=== PATIENT | female | born 1950 | race African-American/Black ===

== ENCOUNTER 2016-12-20 12:31 | Inpatient (IN) | payer MEDICARE, OTHER ==
--- NOTE | ~2016-12-20 | A ---
[facility] Nutrition Therapy DATE: 12/21/16 Patient: YOSI SOLIZ Physician: CARMEN Address: [address] [place] [address] Room/Bed: [address], Zip: [place] [address] Admit Date: 12/20/16 Date of : 48 Height: 5 6 Weight: 222 101 NUTRITIONAL ASSESSMENT: REASON: NPO in ICU, CVA 66 yo female admitted for questionable stroke PMH: HTN, HLD, TIA, CVA, CAD, Parkinsons, anemia, dementia, immobility, contractures, paralysis Anthropometrics: Ht: 65" Wt: 101 kg BMI: 37.1 Labs: Cl- 112 AST 43 Accuchecks 88 GFR 53.8 Meds: Furosemide, D5%, levophed, lipitor, MOM, lopressor I/O & Bowel function: 1862/1190, last BM unknown Skin Integrity: Healed wounds to right ankle and buttocks Edema: none noted Diet: NPO NH diet regimen: Mechanical soft foods with extra gravy and thin liquids/ no straws/ assist with eating/ 90 degrees when eating/ uses sippy cup Assessment: Chart reviewed, events noted. Stroke protocol initiated, and the pt was given TPA. Pt is NPO until FACILITY PRACTICE SPECIALIST evaluation. Pt's diet at the assisted is noted above. Pt was ordered a slick diet during a previous admission here in September 2016. Pt is not appropriate for diet education at this time due to confusion. Pt has h/o dementia. Please see recommendations below. Dx: Inadequate protein-energy intake RT CVA Dx, TPA treatment AEB FACILITY PRACTICE SPECIALIST evaluation ordered, NPO status. Intervention: 1. FACILITY PRACTICE SPECIALIST 2. Advance diet per FACILITY PRACTICE SPECIALIST recs Monitoring, Evaluation and Goals: 1. Oral intake; advance diet per FACILITY PRACTICE SPECIALIST recommendations, tolerate >50% of meals 2. Labs; WNL 3. Weight; preserve lean body mass [facility] Nutrition Therapy DATE: 12/21/16 Patient: YOSI SOLIZ Physician: CARMEN Address: [address] [place] [address] Room/Bed: [address], Zip: [place] [address] Admit Date: 12/20/16 Date of : 48 Height: 5 6 Weight: 222 101 4. Skin; prevent breakdown Recommendations: 1. FACILITY PRACTICE SPECIALIST evaluation to determine if the pt can safely tolerate PO intake. 2. Advance diet per FACILITY PRACTICE SPECIALIST recommendations + heart healthy diet restriction. Please see above for the pt's NH diet regimen, as the pt requires feeding assistance and other precautions noted above. 3. Once diet advances, RD will order appropriate supplements as needed. 4. If the pt is unable to tolerate PO intake safely, may consider enteral nutrition. RD will follow up. Pt is at moderate nutritional risk. Respectfully, CARMELO OROZCO RD, LD Food and Nutritional Services [facility] cc: client file
--- NOTE | ~2016-12-20 | CT18 ---
[facility] A Service of [facility] RADIOLOGY TEXT RESULTS PATIENT: YOSI SOLIZ LOCATION: [facility] [id number] : 48 UNIT #: [id number] AGE: [address]: Alma Michael MD SEX: F ORDER DR: [id number] [facility] [address] [facility]. [place], [place] [address] [id number] MR#: [id number] Acc #: [id number] NAME: YOSI SOLIZ : 1950 SEX: F STUDY DATE/TIME: 12/20/2016 11:49 UNIT: [facility] ROOM: STUDY DESCRIPTION: CT Angio Head Stroke Attending Physician: Mark Curiel D.O. Ordering Physician: Mark Curiel D.O. Primary Care Physician: Primary Care Physician No MEDICAL IMAGING REPORT This report is preliminary unless electronic signature is present EXAM CT scan of the head and neck with contrast with carotid CT angiography HISTORY Onset of aphasia at 10 o'clock this morning. TECHNIQUE Axial imaging was obtained from the mid mediastinum to the top of head with contrast. 100 mL of Isovue was used. CT angiography was performed with thick sliding MIPs, curved planar reformats and 3-D volumetric imaging with surface shaded and volume shaded display. This CT exam was performed with one or more of the following radiation dose reduction techniques: automatic exposure control, adjustment of mA and/or kV according to patient size, and iterative reconstruction. FINDINGS Extravascular structures are unremarkable. The CT angiographic study is negative. There is no evidence of atherosclerotic disease, dissection or major branch vessel occlusion. There is no evidence of aneurysm or vascular malformation intracranially. As a normal variant the right A1 segment is hypoplastic or absent. The distal vertebrals are codominant. IMPRESSION 1. Negative CT angiogram. 2. Also noted but not mentioned above is dilation of the esophagus. This suggests achalasia. Consider correlation with endoscopy or esophagram for confirmation. Dictated by... Milan Walker M.D. [facility] A Service of [facility] RADIOLOGY TEXT RESULTS PATIENT: YOSI SOLIZ LOCATION: [facility] [address]-14 : 48 UNIT #: [id number] AGE: [address]: Alma Michael MD SEX: F ORDER DR: THIS IS AN ELECTRONICALLY VERIFIED REPORT Milan Walker M.D. at 12/20/2016 4:28 PM [place] TD: 12/20/2016 14:12 JOB #: [id number] MEDICAL IMAGING REPORT Page 1 of 1 COPY
--- NOTE | ~2016-12-20 | CT71 ---
[facility] A Service of [facility] RADIOLOGY TEXT RESULTS PATIENT: YOSI SOLIZ LOCATION: [facility] 310-01 : 48 UNIT #: [id number] AGE: [address]: Tyrell Wilhelm MD SEX: F ORDER DR: [id number] [facility]. [place], [place] [address] [id number] I MR#: [id number] Acc #: [id number] NAME: YOSI SOLIZ : 1950 SEX: F STUDY DATE/TIME: 12/21/2016 13:50 UNIT: [facility] ROOM: [facility] STUDY DESCRIPTION: CT Head Wo Contrast Attending Physician: Tyrell Wilhelm M.D. Ordering Physician: Holley Almonte M.D. Primary Care Physician: Primary Care Physician No MEDICAL IMAGING REPORT This report is preliminary unless electronic signature is present EXAM Head CT without HISTORY Followup stroke. CVA 24 hours post stroke. History of dementia, coronary artery disease. Some improvement in alertness per RN. History of Parkinson's, right-sided paralysis. TECHNIQUE This CT exam was performed with one or more of the following radiation dose reduction techniques: automatic exposure control, adjustment of mA and/or kV according to patient size, and iterative reconstruction. COMMENT Routine noncontrast head CT is reviewed. There is an earlier study from 12/20/2016. The mastoid air cells are clear. The patient has mild mucosal thickening in the ethmoid air cells and inferior frontal sinuses but there is no sinus air-fluid level. There is some streak artifact from a lead on the patient's forehead. Allowing for this there is no evidence for acute intracranial hemorrhage or extraaxial fluid collection. The ventricles are normal in size and configuration. Fatima-white junction is fairly well maintained. No acute cortical infarct is appreciated. Minor white matter low-attenuation likely due to small vessel disease noted. There is no intracranial mass effect. Basilar cisterns patent. IMPRESSION No acute intracranial abnormality is appreciated. Again there is minor probable sequelae of small vessel disease. [facility] A Service of [facility] RADIOLOGY TEXT RESULTS PATIENT: YOSI SOLIZ LOCATION: [facility] 310-01 : 48 UNIT #: [id number] AGE: [address]: Tyrell Wilhelm MD SEX: F ORDER DR: Dictated by... Becca Rios M.D. THIS IS AN ELECTRONICALLY VERIFIED REPORT Becca Rios M.D. at 12/21/2016 6:33 PM [place] TD: 12/21/2016 14:55 JOB #: [id number] MEDICAL IMAGING REPORT Page 1 of 1 COPY
--- NOTE | ~2016-12-20 | DS ---
Unit #: [id number] #: [id number] Patient: YOSI SOLZI [id number] [address] [address] [id number] I MR#: [id number] NAME: YOSI SOLIZ ROOM: 310 Age: 66 Sex: F Admission Date: 12/20/2016 : 1950 Discharge Date: 12/22/2016 Attending Physician: Tyrell Wilhelm M.D. Primary Care Physician: No Primary Care Physician DISCHARGE SUMMARY REASON FOR ADMISSION Possible stroke. HISTORY OF PRESENT ILLNESS/HOSPITAL COURSE The patient is a 66-year-old female with an underlying history of CVA, TIA, hypertension, hyperlipidemia, likely mild to moderate dementia, Parkinsonism, depression, chronic immobility syndrome, who was [facility] emergency [facility] from the [facility] for evaluation of above. Please see H and P for complete details. Code Stroke was called. CT of the head was performed which did not show any acute process. Neurology service was subsequently consulted. After calling the patient's fci and feeling as though the patient had new onset aphasia earlier in the day and she was within the window, she received tPA. She was placed on appropriate tPA protocol. Some of her deficits did show improvement. Consultation was placed to speech therapy to evaluate her swallowing mechanism. She was treated with appropriate modifications. After the tPA had been given, the patient's blood pressure dropped to systolic in the 50s. She was quite lethargic. Her blood pressure was low and, therefore, she was started on dopamine, switched to Levophed and (1) for possible underlying septic shock was made. Routine laboratory studies were obtained. Consultation was placed to cardiology as well as intensive care services. The patient was placed in the ICU. Blood cultures have not yielded any acute bacterial growth and blood pressure has now remained stable. She has been weaned off of pressor support. Her urine culture ultimately did grow E. coli. Cardiology services did perform a 2D echocardiogram showing ejection fraction 65%. Recommendation was made from their standpoint for Eliquis 2.5 mg p.o. b.i.d. In consideration of her past history of atrial fibrillation, likely paroxysmal, she did convert spontaneously to sinus rhythm while here. At this point in time, her overall condition is guarded/poor at best and she seems to have persistent toxic/metabolic encephalopathy, likely Unit #: [id number] #: [id number] Patient: YOSI SOLIZ multifactorial in origin. She does appear to be close to baseline. She is a long-term resident of a fci and at this point in time she is stable to be discharged back for ongoing care including increasing rehab and/or therapy. FINAL DISCHARGE DIAGNOSES 1. Acute cerebrovascular accident, status post tPA with improvement. 2. Post tPA hypotension. 3. Septic shock. 4. Urinary tract infection. 5. Aphasia. 6. Hypertension. 7. Dysphagia with appropriate dietary modifications. 8. Dementia, likely mild to moderate. 9. Paroxysmal atrial fibrillation, now normal sinus. 10. Hyperlipidemia. 11. Parkinsonism. DISCHARGE MEDICATIONS 1. DuoNeb aerosol solution q.6 hours scheduled. 2. Tylenol 500 mg p.o. b.i.d. p.r.n. 3. Eliquis 2.5 mg p.o. b.i.d. 4. Nystatin powder as directed. 5. Amantadine 100 mg p.o. b.i.d. 6. Betapace 40 mg p.o. b.i.d. 7. Milk of Mag as directed. 8. Aricept 10 mg p.o. daily. 9. Lasix 20 mg p.o. daily. 10. Lipitor 5 mg p.o. q. h.s. 11. Sinemet CR 25/100, two tablets p.o. b.i.d. 12. Aspirin 81 mg daily. 13. Multivitamin daily. 14. Levaquin 500 mg p.o. daily x7 days. DISCHARGE CONDITION Stable. DISCHARGE DISPOSITION Back to fci. PRISON PROGNOSIS Guarded/poor. Dictated by... Max Soria/meme TD: 12/22/2016 12:15 JOB #: [id number] Unit #: [id number] #: [id number] Patient: YOSI SOLIZ DISCHARGE SUMMARY Page 1 of 1 X Tyrell Wilhelm MD X DISCHARGE SUMMARY
--- NOTE | ~2016-12-20 | CO ---
Unit #: [id number] #: [id number] Patient: YOSI FARMER [id number] [address] [address] [id number] I MR#: [id number] NAME: YOSI FARMER ROOM: [facility] Age: 66 Sex: F Admission Date: 12/20/2016 : 1950 Attending Physician: Alma Michael M.D. Primary Care Physician: Nieves Primary Care Physician Consultation Date: 12/20/2016 CONSULTATION REPORT REASON FOR CONSULT ICU management. CHIEF COMPLAINT Questionable stroke. HISTORY OF PRESENT ILLNESS This is a 66-year-old -[place] female with a past medical history significant for cerebrovascular accident, TIA, hypertension, hyperlipidemia, Parkinson disease, depression and immobility who presented to the emergency room via EMS as a Code Stroke. Per report, the patient is a custodial resident but she is awake, alert, oriented x3. At her baseline, she was ready to play Bingo when she was noted to have a facial droop and unable to speak around 10 a.m. today. Upon presentation to the ER, her NIH score was 7 and she was deemed a candidate for tPA per Dr. Almonte. Soon after tPA was given, patient's blood pressure dropped to 50 and I was called emergently to evaluate the patient. Upon my presentation, the patient was very lethargic and barely responsive. Her blood pressure systolically was in the 40s to 50s. I immediately started patient on dopamine and then switched to Levophed through peripheral IV access. I was unable to place a central line due to tPA administration. PAST MEDICAL HISTORY 1. Dementia. 2. Parkinson. 3. CVA/TIA. 4. Hypertension. 5. Hyperlipidemia. 6. Depression. 7. Immobility. ALLERGIES No known drug allergies. HOME MEDICATIONS 1. Lasix. 2. Aspirin. 3. Lisinopril. 4. Carbidopa and levodopa. 5. Tylenol. 6. Amantadine. 7. Milk of magnesia. Unit #: [id number] #: [id number] Patient: YOSI FARMER SOCIAL HISTORY The patient is a custodial resident. She is a former smoker. She spends most of her time in wheelchair. Her brother is Jayden Farmer who is her power of full stack engineer. Her code status is Full at this point. REVIEW OF SYSTEMS Unable to obtain from the patient due to her condition. PHYSICAL EXAMINATION VITALS: Blood pressure 58/23, respiratory rate 16, O2 saturation 98% on nasal cannula. HEENT: Atraumatic, normocephalic. NECK: Supple. No JVD, no lymphadenopathy. CHEST: Decreased breath sounds bilaterally. HEART: S1, S2. No murmurs, gallops or rubs. ABDOMEN: Soft, nontender. Bowel sounds positive. No hepatosplenomegaly. EXTREMITIES: +1 edema in the lower extremities. SKIN: No rashes. PRIMER CHARGING TOOL SETTER: The patient is lethargic but she opens her eyes to verbal stimuli. She is showing me thumbs up but very weak in both upper extremities. She is wiggling her toes but, again, she is very weak overall. DIAGNOSTIC STUDIES LABORATORY: Creatinine 1.3, sodium 141, white blood count 7.0, hemoglobin 12.8, platelets 218. IMAGING: CT head didn't show acute abnormality. ASSESSMENT 1. Septic shock. 2. Rule out acute ischemic stroke. 3. Urinary tract infection. 4. Dementia. 5. Hyperlipidemia. 6. Parkinson disease. 7. Depression. 8. Immobility. 9. Coronary artery disease. 10. Atrial fibrillation. PLAN 1. The patient is critical and ill-appearing at this point. Will continue Levophed through peripheral IV access because, unfortunately, unable to place PICC line or central line after she received tPA. 2. IV fluids per sepsis guidelines. 3. Rocephin for UTI. 4. Status post tPA, per neurology. 5. Will keep NPO for the next 24 hours. 6. PT eval when deemed appropriate per neurology. 7. SCDs. Critical care time spent on this patient was 35 minutes. Unit #: [id number] #: [id number] Patient: YOSI FARMER Dictated by... Max Valenzuela TD: 12/21/2016 07:31 JOB #: [id number] CONSULTATION REPORT Page 1 of 1 X CLEO DE LA TORRE MD CONSULTATION REPORT
--- NOTE | ~2016-12-20 | EKG ---
PATIENT: YOSI SOLIZ UNIT #: [id number] Ventricular Rate: 83 BPM Atrial Rate: 83 BPM P-R Interval: 202 ms QRS Duration: 104 ms Q-T Interval: 378 ms QTC Calculation(Bezet): 444 ms P [place]: 47 degrees Calculated R [place]: -37 degrees Calculated T [place]: 30 degrees Diagnosis Line: Sinus rhythm with sinus arrhythmia with occasional Diagnosis Line: Premature ventricular complexes Diagnosis Line: Left axis deviation Diagnosis Line: septal ischemia Diagnosis Line: Abnormal ECG Diagnosis Line: When compared with ECG of 20-DEC-2016 12:55, Diagnosis Line: (unconfirmed) Diagnosis Line: Sinus rhythm has replaced Atrial fibrillation Diagnosis Line: ST no longer depressed in Anterior leads Diagnosis Line: Nonspecific T wave abnormality has replaced Diagnosis Line: inverted T waves in Inferior leads Diagnosis Line: Nonspecific T wave abnormality no longer evident Diagnosis Line: in Lateral leads Diagnosis Line: Confirmed by ELLE RICE MD ([id number]) on 12/21/2016 Diagnosis Line: 8:01:38 PM INTERPRETING MD: KRYSTAL VÁZQUEZ
--- NOTE | ~2016-12-20 | CR72 ---
[facility] A Service of [facility] RADIOLOGY TEXT RESULTS PATIENT: YOSI SOLIZ LOCATION: [facility]11-24 : [birth year] UNIT #: [id number] AGE: [address]: Alma Michael MD SEX: F ORDER DR: [id number] [place], [place] [address] [id number] I MR#: [id number] Acc #: [id number] NAME: YOSI SOLIZ : 1950 SEX: F STUDY DATE/TIME: 12/20/2016 12:46 UNIT: [facility] ROOM: 06573 STUDY DESCRIPTION: CR Chest Single View Portable Attending Physician: Alma Michael M.D. Ordering Physician: Mark Curiel D.O. Primary Care Physician: No Primary Care Physician MEDICAL IMAGING REPORT This report is preliminary unless electronic signature is present EXAM AP portable chest. Date 12/20/2016 at 1246. HISTORY Attempted central line placement, unsuccessful. Evaluate for potential pneumothorax. History of stroke, Parkinson disease, right-sided body paralysis. COMPARISON PA and lateral chest radiograph, 09/28/2016. FINDINGS No acute airspace disease. Stable heart size, upper limits normal. Patient is slightly rotated toward the left. Calcified granuloma in the right base, unchanged. No pleural effusion or pneumothorax. IMPRESSION No acute chest findings. Dictated by... Arcelia Fontenot M.D. THIS IS AN ELECTRONICALLY VERIFIED REPORT Arcelia Fontenot M.D. at 12/21/2016 7:04 AM [facility]/blas TD: 12/20/2016 14:29 JOB #: [id number] [facility] A Service [facility] RADIOLOGY TEXT RESULTS PATIENT: YOSI SOLIZ LOCATION: [facility]- : [birth year] UNIT #: [id number] AGE: [address]: Alma Michael MD SEX: F ORDER DR: MEDICAL IMAGING REPORT Page 1 of 1 COPY
--- NOTE | ~2016-12-20 | EKG ---
PATIENT: YOSI SOLIZ UNIT #: [id number] Ventricular Rate: 74 BPM Atrial Rate: 74 BPM P-R Interval: 194 ms QRS Duration: 102 ms Q-T Interval: 390 ms QTC Calculation(Bezet): 432 ms P [place]: 61 degrees Calculated R [place]: -11 degrees Calculated T [place]: 12 degrees Diagnosis Line: Normal sinus rhythm Diagnosis Line: Normal ECG Diagnosis Line: When compared with ECG of 20-DEC-2016 15:28, Diagnosis Line: (unconfirmed) Diagnosis Line: Premature ventricular complexes are no longer Diagnosis Line: Present Diagnosis Line: Confirmed by ELLE RICE MD ([id number]) on 12/22/2016 Diagnosis Line: 6:14:13 AM INTERPRETING MD: KRYSTAL VÁZQUEZ
--- NOTE | ~2016-12-20 | CT24 ---
[facility] A Service of [facility] RADIOLOGY TEXT RESULTS PATIENT: YOSI SOLIZ [facility] [address] : [birth year] UNIT #: [id number] AGE: [address]: Alma Michael MD SEX: F ORDER DR: [id number] [facility] [address] [facility]. [place], [place] [address] [id number] E MR#: [id number] Acc #: [id number] NAME: YOSI SOLIZ : 1950 SEX: F STUDY DATE/TIME: 12/20/2016 11:49 UNIT: [facility] ROOM: STUDY DESCRIPTION: CT Angio Neck Stroke Attending Physician: Mark Curiel D.O. Ordering Physician: Mark Curiel D.O. Primary Care Physician: Primary Care Physician No MEDICAL IMAGING REPORT This report is preliminary unless electronic signature is present EXAM CT angiogram of the neck HISTORY FINDINGS Please see CT angiogram of the head for results. Dictated by... Milan Walker M.D. THIS IS AN ELECTRONICALLY VERIFIED REPORT Milan Walker M.D. at 12/20/2016 4:28 PM Mary[place] TD: 12/20/2016 14:15 JOB #: [id number] MEDICAL IMAGING REPORT Page 1 of 1 COPY
--- NOTE | ~2016-12-20 | CO ---
Unit #: [id number] #: [id number] Patient: YOSI SOLIZ [id number] [address] [address] [id number] I MR#: [id number] NAME: YOSI SOLIZ ROOM: CIC3 Age: 66 Sex: F Admission Date: 12/20/2016 : 1950 Attending Physician: Tyrell Wilhelm M.D. Primary Care Physician: No Primary Care Physician CONSULTATION REPORT REASON FOR CONSULTATION Atrial fibrillation. HISTORY OF PRESENT ILLNESS This is a 66-year-old -Tongan female who was brought into the emergency room with stroke-like symptoms. There was a sudden onset aphasia with right-sided weakness. She was treated with TPA in the emergency room. She was normotensive on arrival where a blood pressure was 112/64 mmHg. However, her blood pressure dropped to as low as 40 mmHg. She was treated with IV fluids and started on Levophed drip. Presenting EKG found the patient to be in atrial fibrillation and a controlled ventricular rate. The duration is unknown. The patient is currently awake and alert and is able to understand commands. Her speech is somewhat difficult to understand. She was admitted to this facility in September of 2016 for urinary tract infection. EKG during that admission showed the patient to be in normal sinus rhythm. From a cardiac standpoint, the [facility] records reveal history of coronary artery disease; however, details are unknown. She currently denies any symptoms of angina. PAST MEDICAL HISTORY 1. Hypertension. 2. Hyperlipidemia. 3. Coronary artery disease. Details unknown. 4. TIA. 5. Depression. 6. Parkinson disease. 7. Anemia. 8. Depression. 9. alf resident. 10. Immobility syndrome. PAST SURGICAL HISTORY D and C. SOCIAL HISTORY The patient resides in a [facility]. According to previous records, she is in a wheelchair. The patient has a remote history of nicotine abuse. FAMILY HISTORY Unobtainable. ALLERGIES No known drug allergies. Unit #: [id number] #: [id number] Patient: YOSI SOLIZ [facility] MEDICATIONS 1. Lisinopril 10 mg daily. 2. Aspirin 81 mg daily. 3. Multivitamin one tablet daily. 4. Loratadine 10 mg daily. 5. Furosemide 20 mg daily. 6. Amantadine 100 mg b.i.d. 7. Carbidopa/levodopa 25/100 mg two tablets b.i.d. 8. Aricept 10 mg daily. 9. Lipitor 10 mg half a tablet daily. 10. Albuterol mini nebs q.4 hours p.r.n. 11. Nystatin applied topically b.i.d. as needed. 12. Milk of Magnesia 30 mL daily p.r.n. 13. Acetaminophen 500 mg b.i.d. and p.r.n. REVIEW OF SYSTEMS Unable to adequately obtain but the patient denies dyspnea and chest pain. PHYSICAL EXAMINATION GENERAL APPEARANCE: This is a 66-year-old obese, -Tongan female who is in no acute distress. VITAL SIGNS: Blood pressure 160/80. Heart rate 90. Temperature 98.4. BMI 41. NEUROLOGIC: She is awake, alert and oriented. She understands commands and squeezes and post doc fellowship bilaterally. She is able to make a fist in the right hand, wiggles toes on command. NECK: Trachea is midline. No thyromegaly or lymphadenopathy. No jugular venous distention. HEART: S1, S2. Heart sounds are normal. No murmurs, rubs or clicks. Irregularly irregular rhythm. LUNGS: Clear to exam without rales, rhonchi, wheezing. ABDOMEN: Soft, nontender with bowel sounds present. No masses appreciated. EXTREMITIES: Left lower extremity with 1+ edema. Right normal. DIAGNOSTIC STUDIES LABORATORY: Glucose 67, BUN 19, creatinine 1.3, sodium 141, potassium 3.9. CK total 493. Lactic acid 1.6. White count 7.0, hemoglobin 12.8, hematocrit 39.8, platelet count 218. IMAGING: Chest x-ray shows no active disease. CT angio of the head and neck shows no acute findings. CT of the head shows no acute intracranial abnormality. IMPRESSION 1. Questionable cardioembolic cerebrovascular accident. 2. Atrial fibrillation and controlled ventricular rate of age undetermined. 3. History of Parkinson dementia. 4. Hypertension. 5. Hyperlipidemia. 6. Coronary artery disease. Details unknown. 7. Immobility syndrome. PLAN 1. Cardiology was consulted for atrial fibrillation. The patient's rate is currently controlled. We will use beta lorenzo for control of Unit #: [id number] #: [id number] Patient: HEYDIYOSI heart rate when blood pressure is stable. 2. Wean Levophed as blood pressure tolerates. 3. Start anticoagulation when allowed after IV TPA therapy. 4. We will check a 2D echocardiogram to evaluate left atrial size and left ventricle dysfunction. 5. We will follow the patient with you. Thank you for allowing us to assist with this patient's care. Dictated by... Juan Balbuena A.P.R.N. for Max Wesley/refugio TD: 12/21/2016 09:32 JOB #: [id number] CONSULTATION REPORT Page 1 of 1 X Juan Balbuena APRN X CONSULTATION REPORT
--- NOTE | ~2016-12-20 | EKG ---
PATIENT: YOSI SOLIZ UNIT #: [id number] Ventricular Rate: 97 BPM Atrial Rate: 105 BPM QRS Duration: 88 ms Q-T Interval: 366 ms QTC Calculation(Bezet): 464 ms Calculated R Hilliard: -16 degrees Calculated T Hilliard: -15 degrees Diagnosis Line: Atrial fibrillation Diagnosis Line: Nonspecific ST abnormality Diagnosis Line: Abnormal ECG Diagnosis Line: When compared with ECG of 27-SEP-2016 11:27, Diagnosis Line: Atrial fibrillation has replaced Sinus rhythm Diagnosis Line: Vent. rate has increased BY 38 BPM Diagnosis Line: QT has lengthened Diagnosis Line: Confirmed by ELLE RICE MD ([id number]) on 12/21/2016 Diagnosis Line: 7:57:36 PM INTERPRETING MD: KRYSTAL VÁZQUEZ
--- NOTE | ~2016-12-20 | HP ---
Unit #: [id number] #: [id number] Patient: YOSI FARMER [id number] [address] [address] [id number] E MR#: [id number] NAME: YOSI FARMER ROOM: Age: 66 Sex: F Admission Date: 12/20/2016 : 1950 Attending Physician: Mark Curiel D.O. HISTORY AND PHYSICAL CHIEF COMPLAINT Possible stroke. HISTORY OF PRESENT ILLNESS The patient is a 66-year-old female with a past medical history of cerebrovascular accident, TIA, hypertension, hyperlipidemia, dementia, Parkinson disease, depression, and immobility, who [facility] the [facility] for evaluation of the above. History is obtained from chart review and discussion with ER staff due to the patient's altered mental status and aphasia. Apparently, the patient was in her usual state of health getting ready to play Bingo when she was noted to have facial droop and be unable to speak around 10 a.m. She was brought to the emergency department for evaluation. A Code Stroke was called. A CT of the head was done and showed nothing acute. She was given TPA. She is being admitted to [facility] for evaluation and further treatment. PAST MEDICAL HISTORY 1. Admission to [facility] September 27-2016, for altered mental status secondary to E. coli urinary tract infection and sepsis. She was discharged to the prison on Omnicef. 2. Dementia. 3. Parkinson disease. 4. History of CVA/TIA. 5. Hypertension. 6. Hyperlipidemia. 7. Depression. 8. Immobility. ALLERGIES No known allergies. HOME MEDICATIONS 1. Lasix. 2. Aspirin. 3. Lisinopril. 4. Carbidopa and levodopa. 5. Tylenol. 6. Amantadine. 7. Milk of Magnesia. Home medications will need to be reviewed and verified. Unit #: [id number] #: [id number] Patient: YOSI FARMER SOCIAL HISTORY The patient lives in a prison. She is a former smoker. She spends most of her time in a wheelchair. Her brother, Jayden Farmer, is her power of senior trial attorney. We have not been able to reach him at the time of this dictation. Her code status is a Full Code. REVIEW OF SYSTEMS A complete review of systems is unobtainable due to altered mental status. PHYSICAL EXAMINATION VITAL SIGNS: Temperature is not recorded, pulse 76, respirations 16, and blood pressure 112/64. During the course of this dictation, the patient's blood pressure has dropped to 86 systolic. GENERAL: Patient is an female who is awake with eyes open. HEENT: Pupils are pinpoint. Mucous membranes are dry. NECK: Supple. Trachea is midline. CARDIOVASCULAR: Irregular. LUNGS: Relatively clear to auscultation bilaterally with no increased work of breathing. ABDOMEN: Soft and nontender with bowel sounds present in all four quadrants. EXTREMITIES: Nontender with no pedal edema. NEUROLOGIC: Patient is awake with eyes open. She is aphasic. Gravity Prospecting Supervisor strength is symmetric. PSYCHIATRIC: Unable to assess. SKIN: Skin of examined areas is warm and dry. DIAGNOSTIC STUDIES LABORATORY: Complete blood count notable for MCV of 100.3. INR is 1. Basic metabolic panel notable for a glucose of 67 and BUN and creatinine 19 and 1.3, respectively. Urinalysis is notable for 2+ leukocyte esterase, positive nitrite, 10-25 white blood cells, 4+ bacteria, and a few squamous cells. IMAGING: CT of the head shows nothing acute. CT angiogram of the head and neck shows nothing acute. CARDIOLOGY: EKG shows atrial fibrillation with a rate of 97 beats per minute. ASSESSMENT The patient is a 66-year-old female with: 1. Cerebrovascular accident. The patient is receiving tissue plasminogen activator. 2. Urinary tract infection. Review of [facility] records reveals a urine culture from September 27, 2016, that grew greater than 100,000 E. coli that was pansensitive. 3. Hypertension, although the patient's blood pressure has been running low in the emergency department. She is currently receiving a one liter normal saline bolus. 4. Hyperlipidemia. 5. Dementia. 6. Parkinson disease. 7. History of cerebrovascular accident/transient ischemic attack. 8. Depression. 9. Immobility. Unit #: [id number] #: [id number] Patient: YOSI FARMER 10. Coronary artery disease. 11. Atrial fibrillation. Review of [facility] records does not show a history of atrial fibrillation, so this is possibly new. PLAN 1. Admit to ICU. 2. N.p.o. 3. Normal saline at 125 mL/hour. 4. Dopamine drip for MAP greater than 65. 5. Consult Dr. Almonte regarding cerebrovascular accident. Stroke protocol per Neurology. 6. TPA protocol per Neurology. 7. Blood cultures x2. 8. Urine culture and sensitivity on urine in the lab. 9. Rocephin 1 gram IV daily pending results of urine culture. 10. Sepsis protocol with stat lactic acid and repeat lactic acid. 11. A 2D echo. 12. TSH. 13. Serial cardiac enzymes. 14. Consult Dr. Mccullough regarding new atrial fibrillation. 15. Consult Dr. Erika Drake regarding ICU admission. 16. Repeat labs in the morning. 17. Additional workup and consultants based on above. Forty-seven (47) minutes critical care time spent in the care of this patient (1 p.m. to 1:47 p.m.). Dictated by Max Garcia/donna TD: 12/20/2016 14:10 JOB #: [id number] HISTORY AND PHYSICAL Page 1 of 1 X Alma Michael MD X HISTORY AND PHYSICAL
--- NOTE | ~2016-12-20 | CT72 ---
[facility] A Service of [facility] RADIOLOGY TEXT RESULTS PATIENT: YOSI SOLIZ LOCATION: CIC3 CICCU3-17 : [birth year] UNIT #: [id number] AGE: [address]: Tyrell Wilhelm MD SEX: F ORDER DR: [id number] [facility] [address] [facility]. [place], [place] [address] [id number] E MR#: [id number] Acc #: [id number] NAME: YOSI SOLIZ : 1950 SEX: F STUDY DATE/TIME: 12/20/2016 11:34 UNIT: QUETA ROOM: STUDY DESCRIPTION: CT Head Wo Contrast Stroke Attending Physician: Mark Curiel D.O. Ordering Physician: Mark Curiel D.O. Primary Care Physician: No Primary Care Physician MEDICAL IMAGING REPORT This report is preliminary unless electronic signature is present EXAM CT head without IV contrast. COMPARISON September 27, 2016; August 14, 2016; and February 01, 2016; as well as MRI brain dated July 14, 2009. INDICATIONS 66-year-old female with aphasia since 10:00 a.m. today. TECHNIQUE This CT exam was performed with one or more of the following radiation dose reduction techniques: automatic exposure control, adjustment of mA and/or kV according to patient size, and iterative reconstruction. FINDINGS Mastoid air cells, middle ears and visualized paranasal sinuses are well-aerated. No acute fractures or suspicious osseous lesions. There is stable mild cerebral and cerebellar volume loss. No mass effect. No abnormal extraaxial fluid collection. No acute intracranial hemorrhage. Stable tiny area of hypoattenuation in the right frontal white matter as compared to September 27, 2016, most in keeping with mild chronic small vessel ischemic change. No convincing evidence of acute ischemia. IMPRESSION 1. No acute intracranial abnormality. Minimal stable chronic small vessel ischemic change is favored. 2. Mild diffuse cerebral and cerebellar volume loss. 1. Dictated by... Justin Stoner M.D. [facility] A Service [facility] RADIOLOGY TEXT RESULTS PATIENT: YOSI SOLIZ LOCATION: [facility] CICCU3-17 : [birth year] UNIT #: [id number] AGE: [address]: Tyrell Wilhelm MD SEX: F ORDER DR: THIS IS AN ELECTRONICALLY VERIFIED REPORT Justin Stoner M.D. at 12/21/2016 5:07 PM Doug TD: 12/20/2016 13:35 JOB #: [id number] MEDICAL IMAGING REPORT Page 1 of 1 COPY
--- NOTE | ~2016-12-20 | CO ---
Unit #: [id number] #: [id number] Patient: YOSI FARMER [id number] [address] [place], [place] [address] [id number] Ken[place] MR#: [id number] NAME: YOSI FARMER ROOM: [facility] Age: 66 Sex: F Admission Date: 12/20/2016 : 1950 Attending Physician: Alma Michael M.D. Primary Care Physician: Primary Care Physician No Requesting Physician: Mark Curiel D.O. Consultation Date: 12/20/2016 CONSULTATION REPORT PATIENT IDENTIFICATION This is a 66-year-old, apparent right-handed, white female who is evaluated in the ER. This is a Code Stroke. PROBLEM LIST 1. The patient was brought in from [facility] for acute Code Stroke with acute aphasia. 2. Prior urosepsis type condition. 3. Dementia. 4. Parkinson disease. 5. History of stroke with left-sided weakness. 6. Coronary artery disease. 7. Hypertension. 8. Hyperlipidemia. 9. Depression. 10. Chronic immobility. HISTORY OF PRESENT ILLNESS This is a 66-year-old female who is actually a resident of [facility]. She was actually playing Bingo when she suddenly stopped talking. Previously, this patient does have dementia but, apparently, she communicates and asks for medication. She had sort of decreased responsiveness but no seizure or seizure-like events were seen. They called in a Code Stroke and ER staff told them to call in EMS to bring her here. This was probably close to 10:45. She was here at 11:28. I saw her immediately in the emergency room and took her for CT, and the CT looked okay and because of the aphasia, I already wanted to go for CTA. I tried my best to try to get some information from her. She started following some commands, but she was still aphasic. She was trying to move her lips, but she never communicated. She also had left-sided weakness and I was informed that she previously was awake and alert and oriented x4, though I am questioning that but still I cannot say otherwise. I called the group home and talked to the nurse taking care of the patient, and did find out that the patient was communicating before this and this was an acute event. We looked at her criteria and we looked at her previous records. She was here in January of last year and then she was again here in September of this year, and the September diagnosis was urosepsis. So, for me, this was an acute change. Initially, the blood pressure was low, but it improved and we tried to call the family to get some information. After looking at the inclusion/exclusion criteria and looking at her labs and looking at her acute aphasia, which was a significant and measurable deficit, it was decided to go for tPA. Before that, the [employer] Team and the ER physician tried to put a central line in to make sure that, if needed, we can give her some fluids. Her Unit #: [id number] #: [id number] Patient: YOSI FARMER blood pressure was better but after several attempts, they could not put a central line. Since she met the criteria and there was no exclusion established, we decided to go for tPA and follow Stroke Protocol. CT was negative. tPA was initiated and it was in progress. The patient's glucose at one time was 67, but point of care it was better and the blood pressure also varied. The last one that I got was 121/67, pulse was 92, respiration 12. Her weight was 103.1 kg. Her platelet count was okay, white count was okay, hemoglobin was okay. A urinalysis was, at that time, in progress. No seizure was established and, in looking at the previous record, this was a significant acute change. One of the other concern was could she have events like another sepsis kind of a situation. Please review the stroke order set. PAST MEDICAL HISTORY As discussed above. PAST SURGICAL HISTORY As discussed above. ALLERGIES None. FAMILY HISTORY No knowledge of strokes or seizures. SOCIAL HISTORY She is living in a group home. Former smoker. She has immobilization syndrome. Her brother is Jayden Farmer, whom we tried to call and he is also power of erisa attorney. MEDICATIONS Her medications, based on her last visit, were: 1. Antibiotics, which probably have been discontinued by now. 2. Tylenol p.r.n. 3. Claritin 10 mg p.o. daily 4. Symmetrel 100 mg p.o. twice a day 5. MOM 6. Aricept 10 mg a day 7. Lasix 20 mg 8. Lipitor 20 mg 9. Lisinopril 10 mg a day 10. Sinemet 25/100 two tablets p.o. twice a day 11. Multivitamin one capsule p.o. daily 12. Aspirin 81 mg a day REVIEW OF SYSTEMS Could not be obtained. PHYSICAL EXAMINATION VITAL SIGNS: She seemed afebrile. Pulse was 92, respirations 12, blood pressure 121/67, weight was 103.1 kg. This is from earlier and I have not seen her at the time of this dictation. Unit #: [id number] #: [id number] Patient: YOSI FARMER NEUROLOGIC EXAMINATION MENTAL STATUS: The patient was lethargic but appropriate otherwise. She looked around, she followed some simple commands, she even tried to mouth some words. CRANIAL NERVE EXAMINATION: She does respond to threats in all gatica. Eye movements seem to be conjugate. Pupils are sluggishly reactive, size about 2 mm. No ptosis, no nystagmus. Sensation of the face and scalp was present. I did not see any significant facial asymmetry, though there was a concern about some left lower facial weakness. Muscle mastication could not be checked. Tongue was midline. I could not visualize the oropharynx or uvula. MOTOR EXAMINATION: She has increased tone all over. She looked more like frozen, but there was probably contracture-type increased tone in the left upper extremity for sure, especially with her hand. SENSORY EXAMINATION: She responded to pain, she withdrew more so on the right as compared to the left. REFLEXES: I could not get any reflexes. Toes are mute. GAIT AND COORDINATION: Could not be evaluated. DIAGNOSTIC STUDIES The labs and imaging studies were personally reviewed and as per records. IMPRESSION Acute onset of speech arrest and expressive aphasia. This is a significant deterioration and deviation from her normal course. Since she meets the criteria for tPA and there is no contraindication established, we decided to go for tPA and will go from there. Looking at her prior history, she has had immobilization and deconditioning and problems with speech before, and urosepsis and shock is a consideration also, so that is being also addressed. Supportive care for now while stroke workup is to be done and post alteplase protocol to be followed and she will be admitted to the ICU and will go from there. I will follow her and I will keep you informed. If sepsis is established, this will be treated accordingly. I talked to Dr. Curiel regarding fluids and other conditions and we will follow her. Dictated by... Max Schneider/torres TD: 12/21/2016 00:38 JOB #: [id number] Unit #: [id number] #: [id number] Patient: YOSI FARMER CONSULTATION REPORT Page 1 of 1 X Holley Almonte MD X CONSULTATION REPORT
[2016-12-20 11:47] LABS: BASOPHIL% 0.4 % (0-2.5); EOSINOPHIL% 0.6 % (0.0-7.0); HEMATOCRIT 39.8 % (35.0-45.0); HEMOGLOBIN 12.8 gm/dL (12.0-16.0); LYMPHOCYTE# 1.1 X10e3 (1.0-3.5); LYMPHOCYTE% 15.7 % (17.0-45.0); MEAN CELL VOLUME 100.3 FL (83-96); MEAN CORPUSCULAR HEMOGLOBIN 32.4 PG (28-34); MEAN CORPUSCULAR HGB CONC 32.3 g/dL (30-36); MEAN PLATELET VOLUME 9.8 FL (6.5-11.5); MONOCYTE# 0.5 X10e3 (0-1.0); MONOCYTE% 6.7 % (3.0-12.0); NEUTROPHIL# 5.4 X10e3 (1.5-7.1); NEUTROPHIL% 76.6 % (40-75); PLATELET COUNT 218 X10e3 (140-420); RED BLOOD COUNT 3.97 X10e (3.90-5.30); RED CELL DISTRIBUTION WIDTH 15.9 % (11.0-15.5)
[2016-12-20 11:48] LABS: DIFF IND NO
[2016-12-20 12:00] LABS: PROTHROMBIN TIME (PATIENT) 10.6 SECONDS (9.6-11.5)
[2016-12-20 12:09] LABS: BUN/CREATININE RATIO 14.61; CALCIUM SERUM 9.7 mg/dL (8.4-10.2); CREATININE SERUM 1.3 mg/dL (0.6-1.4); GLOM FILT RATE Estimated 48.8 mL/min (>60); POTASSIUM 3.9 mmol/L (3.5-5.1)
[2016-12-20 12:17] LABS: URINE SOURCE CATH
[2016-12-20 12:21] LABS: URINE APPEARANCE CLEAR; URINE BILIRUBIN NEG (NEG); URINE BLOOD TRACE (NEG); URINE COLOR YELLOW; URINE GLUCOSE NEG (NEG); URINE KETONE NEG (NEG); URINE LEUKOCYTE ESTERASE 2+ (NEG); URINE NITRATE POS (NEG); URINE PROTEIN NEG (NEG); URINE SPECIFIC GRAVITY 1.018 (1.003-1.035); URINE UROBILINOGEN 0.2 MG/DL (NEG)
[2016-12-20 12:23] LABS: CULTURE INDICATED? YES; URINE BACTERIA AUWI 4+ (NEGATIVE); URINE SQUAMOUS EPITHELIAL CELL FEW /[HPF]
[~2016-12-20 12:31] MED LIST: ALLERGY10 M1 PO; AMANTADINE100 M1 PO; ARICEPT5 M1 PO; ASPIRIN81 MG PO; ATORVASTATIN CA10 MG PO; CARBIDOPA-1 UDTAB.S3 PO; CARBIDOPA-LEVO1 TAB PO; CLARITIN10 M3 PO; DONEPEZIL HCL10 MG PO; HYDROCODON-ACE1 EAC7 PO; LASIX20 MG PO; LISINOPRIL10 MG PO; MAGIC BUTT CREAM; MAPAP500 M1 PO; MILK OF MAGNESIA PO; MULTI VITAMIN1 EACH PO; MULTI-VITAMIN1 EAC1 PO; NEURONTIN100 MG PO
[2016-12-20 12:44] LABS: URINE MUCUS PRESENT
[2016-12-20] MEDS ORDERED: LISINOPRIL10 MG PO (14:51)
[2016-12-20] MEDS ORDERED: ASPIRIN81 MG PO (14:53)
[2016-12-20] MEDS ORDERED: TAB-A-VITE PO (15:08)
[2016-12-20] MEDS ORDERED: CLARITIN10 M3 PO (15:11)
[2016-12-20] MEDS ORDERED: LASIX20 MG PO (15:11)
[2016-12-20] MEDS ORDERED: AMANTADINE100 M1 PO (15:12)
[2016-12-20] MEDS ORDERED: CARBIDOPA-LEVO1 EAC3 PO (15:12)
[2016-12-20] MEDS ORDERED: LIPITOR PO (15:13)
[2016-12-20] MEDS ORDERED: DONEPEZIL HCL10 MG PO (15:13)
[2016-12-20] MEDS ORDERED: IPRAT-ALBUT 0.5-3 ML INH (15:14)
[2016-12-20 15:15] LABS: %MB 3.2 % (0.0-4.0); MB 15.8 ng/ml
[2016-12-20] MEDS ORDERED: NYSTATIN1 EAC1 MC (15:15)
[2016-12-20] MEDS ORDERED: MILK OF MAGNESIA PO (15:17)
[2016-12-20] MEDS ORDERED: MAPAP500 MG PO (15:19)
[2016-12-20 17:55] LABS: POC - CREATININE 0.62 mg/dL (0.44-1.03); POC - GFR >60.0 mL/min (>60)
[2016-12-20 21:18] LABS: %MB 2.7 % (0.0-4.0); MB 10.7 ng/ml
[2016-12-21 02:51] LABS: BASOPHIL% 0.3 % (0-2.5); EOSINOPHIL% 0.4 % (0.0-7.0); HEMATOCRIT 37.1 % (35.0-45.0); HEMOGLOBIN 11.8 gm/dL (12.0-16.0); LYMPHOCYTE# 1.2 X10e3 (1.0-3.5); LYMPHOCYTE% 15.9 % (17.0-45.0); MEAN CELL VOLUME 101.2 FL (83-96); MEAN CORPUSCULAR HEMOGLOBIN 32.1 PG (28-34); MEAN CORPUSCULAR HGB CONC 31.8 g/dL (30-36); MEAN PLATELET VOLUME 10.1 FL (6.5-11.5); MONOCYTE# 0.5 X10e3 (0-1.0); MONOCYTE% 7.3 % (3.0-12.0); NEUTROPHIL# 5.7 X10e3 (1.5-7.1); NEUTROPHIL% 76.1 % (40-75); PLATELET COUNT 207 X10e3 (140-420); RED BLOOD COUNT 3.67 X10e (3.90-5.30); RED CELL DISTRIBUTION WIDTH 15.5 % (11.0-15.5); WHITE BLOOD COUNT 7.5 X10e3 (4.0-10.5)
[2016-12-21 02:56] LABS: DIFF IND NO
[2016-12-21 03:04] LABS: INR 1.5
[2016-12-21 03:17] LABS: PROTHROMBIN TIME (PATIENT) 16.1 SECONDS (9.6-11.5)
[2016-12-21 03:37] LABS: %MB 2.8 % (0.0-4.0); MB 9.4 ng/ml
[2016-12-21 04:03] LABS: ALBUMIN SERUM 3.5 g/dL (3.5-5.0); BILIRUBIN,TOTAL 0.7 mg/dL (0.2-2.0); BUN/CREATININE RATIO 15.83; CALCIUM SERUM 8.7 mg/dL (8.4-10.2); CREATININE SERUM 1.2 mg/dL (0.6-1.4); GLOM FILT RATE Estimated 53.8 mL/min (>60); POTASSIUM 4.2 mmol/L (3.5-5.1); PROTEIN TOTAL SERUM 6.8 g/dL (6.0-8.3)
[2016-12-21] MEDS ORDERED: MR (08:29)
[2016-12-22 06:28] LABS: BASOPHIL% 0.5 % (0-2.5); EOSINOPHIL# 0.1 X10e3 (0-0.7); EOSINOPHIL% 1.3 % (0.0-7.0); HEMOGLOBIN 10.3 gm/dL (12.0-16.0); LYMPHOCYTE# 1.8 X10e3 (1.0-3.5); LYMPHOCYTE% 32.4 % (17.0-45.0); MEAN CELL VOLUME 101.2 FL (83-96); MEAN CORPUSCULAR HEMOGLOBIN 33.5 PG (28-34); MEAN CORPUSCULAR HGB CONC 33.1 g/dL (30-36); MEAN PLATELET VOLUME 9.7 FL (6.5-11.5); MONOCYTE# 0.5 X10e3 (0-1.0); MONOCYTE% 8.9 % (3.0-12.0); NEUTROPHIL# 3.1 X10e3 (1.5-7.1); NEUTROPHIL% 56.9 % (40-75); PLATELET COUNT 168 X10e3 (140-420); RED BLOOD COUNT 3.06 X10e (3.90-5.30); RED CELL DISTRIBUTION WIDTH 15.9 % (11.0-15.5); WHITE BLOOD COUNT 5.5 X10e3 (4.0-10.5)
[2016-12-22 06:33] LABS: DIFF IND NO
[2016-12-22 06:41] LABS: INR 1.2; PROTHROMBIN TIME (PATIENT) 12.7 SECONDS (9.6-11.5)
[2016-12-22 07:10] LABS: BUN/CREATININE RATIO 21.42; CALCIUM SERUM 9.2 mg/dL (8.4-10.2); CREATININE SERUM 0.7 mg/dL (0.6-1.4); GLOM FILT RATE Estimated 103.2 mL/min (>60)
== END 2016-12-22 15:30 | DRG 61 ==
LOC: CED 12:31 → CEDOF 14:05 → CICCU3 17:30 → C3A PCU 12-21 18:26
PROVIDERS: Emergency Medicine; Family Medicine; Internal Medicine Pulmonary Disease
PROC: B328ZZZ Computerized Tomography (CT Scan) of Bilateral Internal Carotid Arteries (ICD-10-PCS; principal; 2016-12-20)
PROC: 3E03317 Introduction of Other Thrombolytic into Peripheral Vein, Percutaneous Approach (ICD-10-PCS; 2016-12-20)
PROC: B325ZZZ Computerized Tomography (CT Scan) of Bilateral Common Carotid Arteries (ICD-10-PCS; 2016-12-20)
PROC: B246ZZZ Ultrasonography of Right and Left Heart (ICD-10-PCS; 2016-12-20)
DX: I63.9 Cerebral infarction, unspecified (principal); A41.9 Sepsis, unspecified organism; R65.21 Severe sepsis with septic shock; G92 Toxic encephalopathy; I48.0 Paroxysmal atrial fibrillation; R13.10 Dysphagia, unspecified; G31.83 Neurocognitive disorder with Lewy bodies; R47.01 Aphasia; I10 Essential (primary) hypertension; G81.91 Hemiplegia, unspecified affecting right dominant side; N39.0 Urinary tract infection, site not specified; I95.2 Hypotension due to drugs; T45.615A Adverse effect of thrombolytic drugs, initial encounter; Y92.129 Unspecified place in nursing home as the place of occurrence of the external cause; B96.20 Unspecified Escherichia coli [E. coli] as the cause of diseases classified elsewhere; I25.10 Atherosclerotic heart disease of native coronary artery without angina pectoris; E78.5 Hyperlipidemia, unspecified; F02.80 Dementia in other diseases classified elsewhere, unspecified severity, without behavioral disturbance, psychotic disturbance, mood disturbance, and anxiety; Z86.73 Personal history of transient ischemic attack (TIA), and cerebral infarction without residual deficits; F32.9 Major depressive disorder, single episode, unspecified; M62.3 Immobility syndrome (paraplegic); R29.810 Facial weakness; Z79.82 Long term (current) use of aspirin; Z87.891 Personal history of nicotine dependence
CPT/HCPCS: 36415; 51702; 70450; 70496; 70498; 71010; 80048; 80053; 80061; 81003; 82550; 82553; 82565; 82947; 83036; 83605; 84443; 84484; 85025; 85610; 86140; 87040; 87086; 87088; 87186; 92523-GN; 92526; 92610; 93005; 93306; 94760; 94761; 96365; 96375; 97162; 99291; G8978-GP; G8979-GP; G8980-GP; G8996-GN; G8997-GN; G8998-GN; J0696; J1265; J1940; J2997; Q9967

== ENCOUNTER 2017-01-18 10:28 | Inpatient (IN) | payer MEDICARE, OTHER ==
--- NOTE | ~2017-01-18 | CO ---
Unit #: [id number] #: [id number] Patient: YOSI FARMER [id number] [address] [address] [id number] I MR#: [id number] NAME: YOSI FARMER ROOM: [facility] Age: 66 Sex: F Admission Date: 01/18/2017 : 1950 Attending Physician: Tyrell Wilhelm M.D. Primary Care Physician: Zain Puentes M.D. CONSULTATION REPORT REASON FOR CONSULTATION Acute renal insufficiency. HISTORY OF PRESENT ILLNESS This 66-year-old female with past medical history of cerebral vascular accident, Parkinson disease, dementia, and frequent admissions to [facility], was sent from the group home due to decreased mental status changes and worsening left-sided weakness. She was mildly febrile in the ER to 99.4. Her BUN and creatinine were abnormal at 38 and 2 with the urinalysis showed 1+ leukocyte esterase, and 1+ protein. Her blood pressure was also low and she was given about 3 L of normal saline in boluses. Her creatinine on last admission which was 12/22/2016 was 2. The patient was started on antibiotics including vancomycin, tobramycin, and Zosyn for treatment of possible community-acquired pneumonia and possible UTI. She was sent to the ICU. PAST MEDICAL HISTORY 1. Recent hospitalization for acute stroke on 12/20/2016 through 12/22/2016. She was discharged to group home rehab facility. 2. Parkinson disease. 3. Immobility. 4. Hyperlipidemia. 5. Dysphagia. ALLERGIES No known drug allergies. HOME MEDICATIONS Include Betapace 40 mg b.i.d., Eliquis b.i.d. Neurontin 100 mg daily, Lasix unknown dose daily, Tylenol daily p.r.n., Lipitor 5 mg q.h.s., donepezil 10 mg daily, Sinemet 25/100 mg 2 tablets b.i.d., amantadine 100 mg b.i.d., Tab-A-Terri daily, aspirin 81 mg daily. REVIEW OF SYSTEMS She has difficulties in speaking, but is alert and awake. She exhibits some slowed mentation that appears to be baseline after review of the chart. She denies chest pain. She denies shortness of breath. She denies abdominal pain. She is asking me to eat, she is hungry she says. SOCIAL HISTORY Currently, she is a group home resident. She is a prior smoker. She is wheelchair bound. She has a brother, who makes medical decisions for her. PHYSICAL EXAMINATION Unit #: [id number] #: [id number] Patient: YOSI FARMER VITAL SIGNS: Her temperature is 97.7, heart rate is 71, blood pressure is 96/40, she is 100% on room air. GENERAL: She is a frail-appearing female, who is awake and able to talk to me in slowed sentences. HEENT: Extraocular muscles are intact. No eye drainage or icterus. Oropharynx is clear. NECK: Supple without JVD, thyromegaly, or carotid bruit. CHEST: Clear to auscultation bilaterally. CARDIAC: S1, S2. No gallop or rub. ABDOMEN: Soft, nontender, nondistended. Positive bowel sounds. EXTREMITIES: She has a Talamantes anchored in place. She has 1+ pitting edema over the ankles. NEUROLOGIC: She has decreased movement of her right side. DIAGNOSTIC STUDIES LABORATORY RESULTS: Shows CBC; white blood cell count 13.1, hemoglobin is 11.1, lactic acid is 0.9, BUN 38, creatinine 2, magnesium 2. Urinalysis 1+ leukocyte esterase, 1+ protein. IMAGING STUDIES: Chest x-ray is negative for CHF. ASSESSMENT AND PLAN 1. Acute kidney injury, the etiology is unclear. Her volume status appears dry, she also has a septic picture. I agree with IV fluid boluses and she is now on IV normal saline at 75 mL an hour. I would favor adding a pressor if she remains hypotensive. She is in the ICU. 2. Possible healthcare-associated pneumonia. She has received vancomycin, tobramycin, and Zosyn. Hopefully, she can stay off the tobramycin as it may worsen her acute kidney injury. 3. History of stroke. She received tPA during her 12/20/2016 admission. She has a left-sided deficit. 4. Dementia. 5. Parkinson disease, on Sinemet. 6. Hyperlipidemia, on a statin. Continue supportive care. I would avoid IV contrast and support blood pressure to avoid hypotension. Continue to rehydrate. She is n.p.o. for a swallow study. Renal ultrasound is pending. Thank you very much for allowing me to see Ms. Farmer in consultation. We will follow closely with you. Dictated by... Jena Rivera M.D. CHERY/china TD: 01/20/2017 06:43 JOB #: [id number] Unit #: [id number] #: [id number] Patient: YOSI FARMER CONSULTATION REPORT Page 1 of 1 X Jena Rivera MD X CONSULTATION REPORT
--- NOTE | ~2017-01-18 | CR150 ---
[facility] A Service of [facility] RADIOLOGY TEXT RESULTS PATIENT: YOSI SOLIZ LOCATION: [facility] 307-01 : 48 UNIT #: [id number] AGE: [address]: Tyrell Wilhelm MD SEX: F ORDER DR: [id number] [facility] [address] [facility]. [place], [place] [address] [id number] E MR#: [id number] Acc #: [id number] NAME: YOSI SOLIZ : 1950 SEX: F STUDY DATE/TIME: 01/18/2017 12:23 UNIT: [facility] ROOM: STUDY DESCRIPTION: CR Hip Min 2 Views Lt Attending Physician: Andria Carrillo M.D. Ordering Physician: Andria Carrillo M.D. Primary Care Physician: Zain Puentes M.D. MEDICAL IMAGING REPORT This report is preliminary unless electronic signature is present EXAM AP pelvis and left hip. HISTORY History supplied is left hip trauma. TECHNIQUE An AP view of the pelvis and AP and oblique view of the left hip were obtained. FINDINGS The hip appears to be held in internal rotation. This is not changed significantly between the AP and oblique images. No obvious fracture is identified. Note is made of a calcified uterine leiomyoma. CONCLUSION 1. The positioning of the hip does no change despite a lateral view. No obvious fracture or dislocation is seen. 2. Calcified uterine leiomyoma. Dictated by... Jayden Collins M.D. THIS IS AN ELECTRONICALLY VERIFIED REPORT Jayden Collins M.D. at 01/19/2017 4:41 PM BERNICE/yari TD: 01/18/2017 15:54 JOB #: [id number] MEDICAL IMAGING REPORT Page 1 of 1 COPY
--- NOTE | ~2017-01-18 | CT57 ---
[facility] A Service of [facility] RADIOLOGY TEXT RESULTS PATIENT: YOSI SOLIZ LOCATION: [facility] 307-01 : 48 UNIT #: [id number] AGE: [address]: Tyrell Wilhelm MD SEX: F ORDER DR: [id number] [facility] [address] [facility]. [place], [place] [address] [id number] I MR#: [id number] Acc #: [id number] NAME: YOSI SOLIZ : 1950 SEX: F STUDY DATE/TIME: 01/18/2017 17:13 UNIT: [facility] ROOM: [facility] STUDY DESCRIPTION: CT Chest Wo Cont Attending Physician: Alma Michael M.D. Ordering Physician: Alma Michael M.D. Primary Care Physician: Zain Puentes M.D. MEDICAL IMAGING REPORT This report is preliminary unless electronic signature is present EXAM CT chest without contrast. HISTORY Shortness of air for 5 days. Hypotension. Sepsis. TECHNIQUE This CT exam was performed with one or more of the following radiation dose reduction techniques: automatic exposure control, adjustment of mA and/or kV according to patient size, and iterative reconstruction. FINDINGS CT chest without contrast demonstrates mild multifocal atelectasis in the bilateral lower lobes and in the inferior right upper lobe, but no airspace consolidation. No pleural effusion. Calcified granuloma in the anterolateral right lower lobe. Right subclavian central line extends across the midline and terminates in the central left brachiocephalic vein and does not extend into the SVC. Images of the upper abdomen demonstrate mild wall thickening of the hepatic flexure of the colon with mild adjacent pericolonic stranding, which could reflect infectious or inflammatory colitis and correlation the patient's symptoms is recommended. IMPRESSION 1. No airspace infiltrates or effusions. Mild atelectasis in the bilateral lower lobes and in the inferior right upper lobe. 2. No adenopathy or effusions. 3. Images of the upper abdomen demonstrates an apparent wall thickening of the hepatic flexure of the colon with mild adjacent pericolonic stranding suggesting segmental infectious or inflammatory colitis. Correlation to the patient's symptoms is recommended. 4. The right subclavian central line extends across the midline and STS. [facility] A Service of [facility] RADIOLOGY TEXT RESULTS PATIENT: YOSI SOLIZ LOCATION: [facility] 307-01 : 48 UNIT #: [id number] AGE: [address]: Tyrell Wilhelm MD SEX: F ORDER DR: terminates in the central left brachiocephalic vein and does not extend into the SVC. Dictated by... Sharif Echeverria M.D. THIS IS AN ELECTRONICALLY VERIFIED REPORT Sharif Echeverria M.D. at 01/19/2017 11:28 PM OK/carlo TD: 01/19/2017 00:49 JOB #: [id number] MEDICAL IMAGING REPORT Page 1 of 1 COPY
--- NOTE | ~2017-01-18 | CT71 ---
[facility] A Service of [facility] RADIOLOGY TEXT RESULTS PATIENT: YOSI SOLIZ LOCATION: [facility] : 48 UNIT #: [id number] AGE: [address]: Tyrell Wilhelm MD SEX: F ORDER DR: [id number] [address] [address] [id number] E MR#: [id number] Acc #: [id number] NAME: YOSI SOLIZ : 1950 SEX: F STUDY DATE/TIME: 01/18/2017 12:47 UNIT: [facility] ROOM: STUDY DESCRIPTION: CT Head Wo Contrast Attending Physician: Andria Carrillo M.D. Ordering Physician: Andria Carrillo M.D. Primary Care Physician: Zain Puentes M.D. MEDICAL IMAGING REPORT This report is preliminary unless electronic signature is present EXAM Head CT, no contrast, 01/18/2017. COMPARISON Prior head CT, dated 12/21/2016. TECHNIQUE Axial unenhanced head CT. This CT exam was performed with one or more of the following radiation dose reduction techniques: automatic exposure control, adjustment of mA and/or kV according to patient size, and iterative reconstruction. HISTORY New onset confusion today. FINDINGS There is no intracranial hemorrhage or mass. There is no hydrocephalus or extraaxial fluid collection. There is some mild nonspecific white matter change, but no acute abnormality. The skull base and calvaria are unremarkable. IMPRESSION Mildly motion-degraded, but otherwise normal negative unenhanced head CT. Dictated by... Lior Woods M.D. THIS IS AN ELECTRONICALLY VERIFIED REPORT Lior Woods M.D. at 01/19/2017 3:54 PM MARTÍN/jj [facility] A Service [facility] RADIOLOGY TEXT RESULTS PATIENT: YOSI SOLIZ LOCATION: [facility] : 48 UNIT #: [id number] AGE: [address]: Tyrell Wilhelm MD SEX: F ORDER DR: TD: 01/18/2017 17:00 JOB #: [id number] MEDICAL IMAGING REPORT Page 1 of 1 COPY
--- NOTE | ~2017-01-18 | EKG ---
PATIENT: YOSI SOLIZ UNIT #: [id number] Ventricular Rate: 67 BPM Atrial Rate: 67 BPM P-R Interval: 190 ms QRS Duration: 94 ms Q-T Interval: 464 ms QTC Calculation(Bezet): 490 ms P [place]: 62 degrees Calculated R [place]: -5 degrees Calculated T [place]: 46 degrees Diagnosis Line: Sinus rhythm with occasional Premature ventricular Diagnosis Line: complexes Diagnosis Line: Otherwise normal ECG Diagnosis Line: When compared with ECG of 21-DEC-2016 14:22, Diagnosis Line: Premature ventricular complexes are now Present Diagnosis Line: QT has lengthened Diagnosis Line: Confirmed by JALIL GRACE MD ([id number]) on 01/19/2017 Diagnosis Line: 8:01:54 PM INTERPRETING MD: LESLY VÁZQUEZ
--- NOTE | ~2017-01-18 | DS ---
Unit #: [id number] #: [id number] Patient: YOSI FARMER [id number] [address] [place], [place] [address] [id number] I MR#: [id number] NAME: YOSI FARMER ROOM: [facility] Age: 66 Sex: F Admission Date: 01/18/2017 : 1950 Discharge Date: 01/22/2017 Attending Physician: Tyrell Wilhelm M.D. Primary Care Physician: Zain Puentes M.D. DISCHARGE SUMMARY DISCHARGE DIAGNOSES 1. Non ST elevation myocardial infarction, medically managed per cardiology. 2. Systemic inflammatory response syndrome present on admission, initially was treating for HCAP; however, CT without any evidence of pneumonia. No signs or symptoms of abdominal etiology. Urine culture without any growth. 3. Dysphagia: Will be placing patient on pureed consistency with honey-thick liquids per speech therapy's recommendation. 4. CT scan with colitis: Was felt by Dr. Gaines that patient does not need a colonoscopy. Patient's Clostridium difficile stool culture was ordered but no sample was provided to rule out Clostridium difficile. Patient has no fever, no elevated white count. No abdominal pain. Therefore, it was felt that patient does not need IV antibiotics. It was also felt that patient does not need a colonoscopy by Dr. Gaines. 5. Acute kidney injury: Likely prerenal with hypotension from systemic inflammatory response syndrome criteria. Renal function is back to baseline. The patient was followed by nephrology during this hospitalization. 6. History of Parkinson disease, progressively declining. Will need to go back to prison upon discharge for continued support. 7. Dementia: Stable at this time. 8. Recent cerebrovascular accident. 9. Hyperlipidemia. 10. Immobility syndrome. 11. Overall guarded prognosis. PROCEDURE None. CONSULTANTS 1. Pulmonary with Dr. Guzman. 2. Nephrology with Dr. Rivera. 3. Cardiology, Dr. Gipson as well as Dr. Mccullough. 4. Gastroenterology with Dr. Gaines. DIAGNOSTIC STUDIES LABORATORY: Today's labs include: BMP: Glucose 153, BUN 6, creatinine 0.7, sodium 142, potassium 3.9, chloride 110, CO2 of 24. Uric acid when checked was 5.8. Calcium 9. CBC with WBC of 7.4, RBC 3.7, hemoglobin 11.8, hematocrit 37.3, MCV 100.8, MCH 31.9, MCHC 31.7, RDW 16.6, platelets 185,000, MPV 10.2. Please note, patient's blood culture had no growth x2. Urine culture also had no growth. Unit #: [id number] #: [id number] Patient: YOSI FARMER IMAGING: Chest x-ray on January 18, 2017: Impression - right subscapular approach catheter. The tip projects over the aortic knob. No pneumothorax. X-ray of hip, two view, on January 18, 2017: Conclusion - position of the hip no change despite lateral view. No obvious fracture or dislocation is seen. Calcified uterine leiomyoma. CT head without contrast, January 18, 2017: Impression - mildly motion degraded but otherwise normal negative enhanced head CT. CT chest without contrast: Impression - no airspace infiltrates or effusions. Mild atelectasis in the bilateral lower lobes and in the inferior right upper lobe. No adenopathy or effusions. Images of the upper abdomen demonstrate an apparent wall thickening of the hepatic flexure of the colon with mild adjacent pericolonic stranding suggesting segmental infectious or inflammatory colitis. Correlation of the patient's symptoms is recommended. The right subclavian central line extends across the midline and terminates in the central left brachiocephalic vein and does not extend into the SVC. Renal ultrasound with impression: Limited exam of the left kidney is not well visualized. No definite acute abnormality is noted within either kidney. HOSPITAL COURSE The patient is a 66-year-old female with past medical history of recent CVA, dementia, Parkinson disease, immobility syndrome, hyperlipidemia, and depression who was brought to the emergency department due to symptoms of left-sided weakness as well as low blood pressure. It was felt that the left-sided deficit was actually residual and not a new symptom. On admission, she had workup including a CT that was normal, chest x-ray which was normal, left hip which showed no fracture. She had leukocytosis, white count of 13,000. She was admitted for sepsis due to healthcare-acquired pneumonia as well as acute kidney injury. She was aggressively hydrated with IV fluids for her hypotension and was treated with vancomycin, tobramycin, and Zosyn for presumed healthcare-acquired pneumonia. She was seen in consultation with pulmonary as well as nephrology. As part of her workup, we were trending her cardiac enzymes which she did have elevated troponin, the highest being 0.1. Cardiology, Dr. Gipson as well as Dr. Mccullough, has seen patient in consultation and it was felt by them that patient no longer needed to be on the beta lorenzo due to her hypotension and her septic state. They were originally treating the NSTEMI with Lovenox but the highest troponin was 0.1 and no symptoms. Therefore, this was de-escalated back down to her maintenance Eliquis at 2.5 mg orally twice daily. Due to the fact that patient recently had an echo last month with an ejection fraction of 65%, it was felt that she did not need a repeat echo. It is felt that she also did not need any further workup for the NSTEMI. Please note, the NSTEMI could have just been leakage with her SIRS that was present on admission. As part of her pneumonia workup, had done a CT of the chest without contrast which actually saw that there was no evidence of pneumonia but there was concern for abdominal wall thickening at the hepatic flexure of the colon. Therefore, Dr. Gaines of gastroenterology was asked to see the patient in consultation and suggested to rule out Clostridium difficile colitis but no sample was provided to rule this out. It was also felt by Dr. Gaines that patient would not benefit from a colonoscopy given that she does have Unit #: [id number] #: [id number] Patient: YOSI FARMER advancing age. If she does have any type of colon cancer, that would not change her course of care. Due to patient's admitting (1) and pneumonia, we had also asked speech therapy to see patient in consultation who had recommended pureed consistency and honey-thick liquid for her diet for her dysphagia. She is tolerating this diet at this time. Edwards that patient at this time does not need a PEG placement. I have spoken to patient's power of senior trial attorney who is also her brother, Mr. Jayden Farmer, who states that there is no plan to have a PEG placed at this time and in the future if she does not tolerate oral intake that they would proceed with that workup at that time. With regard to patient's acute kidney injury with IV fluid hydration, patient is back to her normal renal function at this time. I spoke to patient's brother, Mr. Jayden Farmer, who is her power of senior trial attorney that patient's long-term prognosis is poor. Given her recent CVA, her advancing Parkinson which can both lead to recurrent aspiration pneumonia. He voiced understanding and states that he would discuss this with the rest of his brothers and sisters. At this time, patient is stable to be discharged back to the prison which will be back to [place]. DISCHARGE ACTIVITY Patient is to resume activities with assistance as prior to hospitalization. DIET Patient is to continue diet per speech therapy's recommendation which is pureed consistency and honey-thick liquids only when alert. (2) as per protocol. One-on-one assist with liquid with spoon. Also, to have head of bed remaining at least 30-degree angle for at least 30 minutes after oral intake. DISCHARGE MEDICATIONS 1. DuoNeb inhaled every six hours as needed for shortness of breath and wheezing. 2. Tylenol 500 mg orally twice daily as needed for pain. 3. Eliquis 2.5 mg orally twice daily. 4. Amantadine 100 mg orally twice daily. 5. Milk of Magnesia 30 mL orally as needed for constipation. 6. Donepezil 10 mg orally daily. 7. Lipitor 5 mg orally at bedtime. 8. Iron supplement 324 mg orally daily. 9. Carbidopa with levodopa 25/100 two tablets orally twice daily. 10. Multivitamin one tablet orally daily. 11. Aspirin 81 mg orally daily. This dictation took 45 minutes to include patient education to herself as well as her power of senior trial attorney and to coordinate care. Dictated by... Steffany Reilly PA-C for Max Soria/nikki TD: 01/22/2017 10:09 Unit #: [id number] #: [id number] Patient: YOSI FARMER JOB #: [id number] DISCHARGE SUMMARY Page 1 of 1 X X DISCHARGE SUMMARY
--- NOTE | ~2017-01-18 | CO ---
Unit #: [id number] #: [id number] Patient: YOSI FARMER [id number] [address] [address] [id number] I MR#: [id number] NAME: YOSI FARMER ROOM: 307 Age: 66 Sex: F Admission Date: 01/18/2017 : 1950 Attending Physician: Tyrell Wilhelm M.D. Primary Care Physician: Zain Puentes M.D. Consultation Date: 01/20/2017 CONSULTATION REPORT PRIMARY CARE PHYSICIAN Zain Puentes M.D. REASON FOR CONSULTATION Colitis. HISTORY OF PRESENT ILLNESS Ms. Farmer is a 66-year-old female, who is bedridden. The patient is admitted with sepsis as a result of healthcare acquired pneumonia. She has been treated with antibiotics and is currently recuperating on the floor. I have been asked to see her because a CT of the chest shows thickening of the right side of the colon, which was focal. The patient herself has no history of diarrhea or abdominal pain. In fact, her admission was precipitated by hypotension and left-sided weakness. PAST MEDICAL HISTORY Significant for history of cerebrovascular accident, dementia, Parkinson disease, hyperlipidemia, depression, immobility. She is a resident of long term. There is also a previous history of stroke. MEDICATIONS Prior to admission included aspirin, vitamins, amantadine, carbidopa and levodopa, donepezil, Lipitor, DuoNeb, milk of magnesia, Tylenol, Lasix, iron, Neurontin, Eliquis, and Betapace. ALLERGIES No known drug allergies. SOCIAL HISTORY Lives at long term. Former smoker. Does not drink alcohol. REVIEW OF SYSTEMS Detailed review of organ systems not possible due to the patient's mental status. PHYSICAL EXAMINATION GENERAL: She is comfortable and asleep. VITAL SIGNS: Stable with a temperature of 97.8, pulse is 76 per minute and regular, respiratory rate is 18, blood pressure is 127/55. She weighs 211 pounds and her baseline weight is about the same. HEENT: She has mild pallor. There being no icterus, lymphadenopathy, or peripheral edema. CARDIOVASCULAR: Normal heart sounds. No murmurs on auscultation. Unit #: [id number] #: [id number] Patient: YOSI FARMER LUNGS: Reveals normal breath sounds. Good air entry. ABDOMEN: Soft, obese, and nontender. Liver and spleen are not palpable. Bowel sounds normal. DIAGNOSTIC STUDIES LABORATORY RESULTS: Shows a hemoglobin of 10.0, white count has dropped from 13 to 7, platelet count is 157. Albumin is 2.9. BUN and creatinine are normal, potassium is 3.1. IMAGING STUDIES: CT of the chest shows focal thickening in the right colon and hepatic flexure. CLINICAL IMPRESSION 1. The patient is not a surgical candidate and in the absence of any diarrhea, little reason to evaluate. Her CT findings which may be a false positive as well. Even if she does indeed have possible underlying colon cancer, the colonoscopy will not likely change of management because of her overall condition. Suggest await stool studies and if she is positive for clostridium difficile toxin, treat it appropriately. 2. Underlying dementia and dysphagia. Await speech and swallow evaluation before feeding or deciding for alternate mode of feeding if needed. We will follow the patient the next day. Thank you for asking me to see Ms. Farmer. I appreciate the consult. Dictated by... Max Astorga/china TD: 01/20/2017 23:00 JOB #: [id number] CONSULTATION REPORT Page 1 of 1 X Chacorta Gaines MD X CONSULTATION REPORT
--- NOTE | ~2017-01-18 | CO ---
Unit #: [id number] #: [id number] Patient: YOSI SOLIZ [id number] [address] [place], [place] [address] [id number] I MR#: [id number] NAME: YOSI SOLIZ ROOM: [facility] Age: 66 Sex: F Admission Date: 01/18/2017 : 1950 Attending Physician: Tyrell Wilhelm M.D. Primary Care Physician: Zain Puentes M.D. CONSULTATION REPORT REASON FOR CONSULTATION Critical care management. CHIEF COMPLAINT Hypertension, left sided weakness. 66-year-old female with a past medical history of stroke, dysphagia, dementia, Parkinson disease, [facility], brought in with a complaint of low blood pressure and left sided weakness. I am seeing the patient at bedside. She is currently lethargic, unarousable. REVIEW OF SYSTEMS Unobtainable. PAST MEDICAL HISTORY 1. Stroke. 2. Dysphagia. 3. Dementia. 4. Parkinson disease. 5. Hypertension. 6. Dyslipidemia. 7. Immobility. ALLERGIES No known drug allergies. MEDICATIONS 1. Aspirin. 2. Amantadine. 3. Sinemet. 4. Donepezil. 5. Lipitor. 6. Duo-Nebs. 7. Milk of magnesia. 8. Lasix. 9. Iron. 10. Eliquis. 11. Betapace. SOCIAL HISTORY Ex-smoker. No alcohol, no drug abuse. FAMILY HISTORY None as per record. Unit #: [id number] #: [id number] Patient: YOSI SOLIZ MEDICATION As per MAR, has been reviewed. DIAGNOSTIC STUDIES LABORATORY: Blood gas - pH of 57.41, pCO2 of 41, pO2 is 88 on room air. IMAGING: CT head - no acute abnormalities. CT chest - bilateral infiltrate. PHYSICAL EXAMINATION VITAL SIGNS: Temperature 98, pulse 87, respirations 12, blood pressure 110/70. NEUROLOGICAL: She is lethargic. CVS: S1+ S2. RESPIRATIONS: Bilateral air entry, bilateral mild rhonchi. GI: Nontender, soft. Bowel sounds positive. EXTREMITIES: No edema. ASSESSMENT AND PLAN 1. Altered mental status. 2. Sepsis. 3. Acute kidney injury. 4. Dysphagia. 5. Dementia. 6. Parkinson disease. 7. Pneumonia. Plan is to continue patient on broad spectrum IV antibiotics. Continue bronchodilator. GI and DVT prophylaxis. IV pressors. Stress dose steroids. IV fluids. Nephrology to see the patient. Please see orders for detailed plan. Thank you very much for this consultation. Dictated by... Max Alvarenga/meme TD: 01/19/2017 07:06 JOB #: [id number] CONSULTATION REPORT Page 1 of 1 X Kate Guzman MD X CONSULTATION REPORT
--- NOTE | ~2017-01-18 | A ---
[facility] Nutrition Therapy DATE: 01/19/17 Patient: YOSI SOLIZ Physician: CARMEN Address: [address] [facility] Room/Bed: [address], Zip: [place] [address] Admit Date: 01/18/17 Date of : [birth year] Height: 5 2 Weight: 211 96 NUTRITIONAL ASSESSMENT: REASON: NPO IN ICU ASSESSMENT PT IS 66 Y.O. FEMALE ADMITTED FOR AMS, SEPSIS, FARIHA PMH: HTN, HLD, TIA, CVA, CAD, PARKINSONS DISEASE, DEMENTIA, CONTRACTURES, PARALYSIS, HX OF DYSPHAGIA Anthropometrics: 5'5" (PER RD OBSERVATION), WT: 211# (96 KG), BMI: 35.1 Labs: GLU: 64, BUN: 24, NA+:146, CA+:8.2, ALB: 2.9, GFR: 53.8 Meds: NACL, MILK OF MAGNESIA, FERROUS GLUCONATE I/O & Bowel function: 450/250 Skin Integrity: HEALED WOUNDS TO (R) ANKLE & BUTTOCKS (PER RD ASSESSMENT DECEMBER 2016) EDEMA: BLE 1+ EDEMA; BUE GENERALIZED EDEMA Estimated Nutrition Needs: [id number] KCAL (15-20 KCAL/KG BW) 85-140 G PRO (1.5-2.5 G PRO/KG IBW) FLUIDS CONSISTENT W/KCAL NEEDS OR MANAGE PER MD Assessment: CHART REVIEWED AND EVENTS NOTED. PT SEEN FOR NPO IN ICU ASSESSMENT. PT CURRENTLY NPO 2' AMS AND NOTED TO BE CONFUSED, WITHDRAWN AND DECLINES TO RESPOND (PER RN) (UNTIL AQUACULTURAL WORKER SUPERVISOR EVAL). PT FROM [facility] CURRENTLY ON SEPSIS PROTOCOL. PER Asetek, PT WEIGHED ~222# IN DECEMBER 2016, ?WEIGHT LOSS NOTED. OF NOTE, RD ASSESSED PT IN DECEMBER 21 2016 AND NOTES PRISON REGIMEN IS MECHANICAL SOFT FOODS W/EXTRA GRAVY AND THIN LIQUIDS/NO STRAWS/ASSIST W/EATING/90 DEGREES WHEN EATING/USES SIPPY CUP. PT RECEIVED SLICK DIET + NECTAR THICK LIQUIDS PAST ADMIT IN DECEMBER 2016. PT NOT APPROPRIATE FOR DIET EDUCATION AT THIS VISIT. PLEASE SEE RECOMMENDATIONS BELOW. Dx: INADEQUATE PROTEIN-ENERGY INTAKE R/T DX, CURRENT CONDITION AEB NPO STATUS, AQUACULTURAL WORKER SUPERVISOR EVAL, POSSIBLE WEIGHT LOSS NOTED. Intervention: 1. NPO Monitoring, Evaluation and Goals: 1. ORAL INTAKE; ADVANCE DIET PER AQUACULTURAL WORKER SUPERVISOR RECOMMENDATIONS; TOLERATE >50% OF MEALS W/NO C/O N/V/D 2. LABS; WNL [facility] Nutrition Therapy DATE: 01/19/17 Patient: YOSI SOLIZ Physician: CARMEN Address: [address] [facility] Room/Bed: [address], Zip: [place] [address] Admit Date: 01/18/17 Date of : [birth year] Height: 5 2 Weight: 211 96 3. WEIGHT; PRESERVE LEAN BODY MASS 4. SKIN; PREVENT SKIN BREAKDOWN MONITOR: -DIET ADVANCEMENT -PO INTAKE/APPETITE -WEIGHTS -LABS Recommendations: 1. ONCE MEDICALLY FEASIBLE, CONSULT AQUACULTURAL WORKER SUPERVISOR TO DETERMINE IF PT CAN SAFELY TOLERATE PO INTAKE OF NOTE, PT WAS RECEIVING SLICK DIET + NECTAR THICK LIQUIDS LAST ADMIT 2. ONCE DIET ADVANCES, RD WILL ORDER APPROPRIATE SUPPLEMENTS NEEDED 3. IF PT UNABLE TO TOLERATE PO INTAKE, CONSIDER PLACING DHT AND BEGIN ALTERNATIVE NUTRITION SUPPORT OF JEVITY 1.5 @ 20 ML/HR, ADVANCE 10 ML q 6 HOURS TO GOAL RATE OF 50 ML/HR + SUGAR-FREE PROSTAT ONCE DAILY -TOTAL PROVIDES 1900 KCAL, 92 G PRO, 912 ML FREE H20 ADD FREE H20 FLUSHES PER RD WILL F/U PER PROTOCOL PT IS MODERATELY COMPROMISED Respectfully, SHIRLEY GOMEZ MS, RD, LD [facility] cc: client file
--- NOTE | ~2017-01-18 | CR72 ---
[facility] A Service of [facility] RADIOLOGY TEXT RESULTS PATIENT: YOSI SOLIZ LOCATION: [facility] [id number] : 48 UNIT #: [id number] AGE: [address]: Alma Michael MD SEX: F ORDER DR: [id number] [facility] [address] [facility]. [place], [place] [address] [id number] MR#: [id number] Acc #: [id number] NAME: YOSI SOLIZ : 1950 SEX: F STUDY DATE/TIME: 01/18/2017 11:30 UNIT: [facility] ROOM: STUDY DESCRIPTION: CR Chest Single View Portable Attending Physician: Andria Carrillo M.D. Ordering Physician: Andria Carrillo M.D. Primary Care Physician: Zain Puentes M.D. MEDICAL IMAGING REPORT This report is preliminary unless electronic signature is present EXAM Portable chest. INDICATION Line placement. COMPARISON 12/20/2016. FINDINGS There is a right subclavian approach central venous catheter. The tip projects over the region of the aortic knob. Unsure of the exact location. The tip may be within the innominate vein on the left. However, based on the tip position cannot entirely exclude intraarterial positioning. Heart size stable. There is no evidence for pneumothorax. IMPRESSION Right subclavian approach catheter. The tip projects over the aortic knob. This may within the left innominate vein. However, based on tip position cannot exclude arterial positioning of the line. No pneumothorax. Dictated by... Mario Sands M.D. THIS IS AN ELECTRONICALLY VERIFIED REPORT Mario Sands M.D. at 01/18/2017 4:47 PM ARS/gz TD: 01/18/2017 14:16 JOB #: [id number] [facility] A Service of [facility] RADIOLOGY TEXT RESULTS PATIENT: YOSI SOLIZ LOCATION: [facility] [id number] : [birth year] UNIT #: [id number] AGE: [address]: Alma Michael MD SEX: F ORDER DR: MEDICAL IMAGING REPORT Page 1 of 1 COPY
--- NOTE | ~2017-01-18 | HP ---
Unit #: [id number] #: [id number] Patient: YOSI SOLIZ [id number] [address] [address] [id number] I MR#: [id number] NAME: YOSI SOLIZ ROOM: 11956 Age: 66 Sex: F Admission Date: 01/18/2017 : 1950 Attending Physician: Alma Michael M.D. Primary Care Physician: Zain Puentes M.D. HISTORY AND PHYSICAL ADDENDUM Thirty six minutes critical care time spent in the care of this patient (3:30 to 4:06 p.m.). Dictated by Max Garcia/nikki TD: 01/18/2017 17:08 JOB #: [id number] HISTORY AND PHYSICAL Page 1 of 1 X Alma Michael MD X HISTORY AND PHYSICAL
--- NOTE | ~2017-01-18 | US77 ---
[facility] A Service of [facility] RADIOLOGY TEXT RESULTS PATIENT: YOSI SOLIZ LOCATION: [facility] : 48 UNIT #: [id number] AGE: [address]: Tyrell Wilhelm MD SEX: F ORDER DR: [id number] [facility]. [place], [place] [address] [id number] I MR#: [id number] Acc #: [id number] NAME: YOSI SOLIZ : 1950 SEX: F STUDY DATE/TIME: 01/19/2017 17:10 UNIT: C3A PCU ROOM: [facility] STUDY DESCRIPTION: US Kidney Bilateral Complete Attending Physician: Tyrell Wilhelm M.D. Ordering Physician: Tyrell Wilhelm M.D. Primary Care Physician: Zain Puentes M.D. MEDICAL IMAGING REPORT This report is preliminary unless electronic signature is present EXAM Renal ultrasound. INDICATION Elevated BUN and creatinine, and acute renal failure. TECHNIQUE Fatima-scale imaging of the kidneys and urinary bladder was performed. COMPARISON There are no comparison studies available. FINDINGS Talamantes catheter is in the bladder. The right kidney measures 11.4 cm in length and the left kidney measures approximately 10 cm in length. The right kidney is within normal limits. The left kidney, overall, is very poorly visualized. The plant machinist did question some hydronephrosis but I do not see any definite hydronephrosis on the left. There is a Talamantes catheter within the bladder. IMPRESSION Limited exam as the left kidney is not well visualized. No definite acute abnormality is noted within either kidney. Dictated by... Mario Sands M.D. THIS IS AN ELECTRONICALLY VERIFIED REPORT Mario Sands M.D. at 01/20/2017 8:36 AM YEVGENIY/carlo TD: 01/19/2017 23:19 [facility] A Service [facility] RADIOLOGY TEXT RESULTS PATIENT: YOSI SOLIZ LOCATION: [facility] : 48 UNIT #: [id number] AGE: [address]: Tyrell Wilhelm MD SEX: F ORDER DR: JOB #: [id number] MEDICAL IMAGING REPORT Page 1 of 1 COPY
--- NOTE | ~2017-01-18 | CO ---
Unit #: [id number] #: [id number] Patient: YOSI FARMER [id number] [facility] [address] [facility]. [place], [place] [address] [id number] I MR#: [id number] NAME: YOSI FARMER ROOM: [facility] Age: 66 Sex: F Admission Date: 01/18/2017 : 1950 Attending Physician: Tyrell Wilhelm M.D. Primary Care Physician: Zain Puentes M.D. CONSULTATION REPORT REASON FOR CONSULTATION Increased troponin. HISTORY OF PRESENT ILLNESS Ms. Farmer is a 66-year-old female with a history of Parkinson's, CVA, dysphagia, dementia, dyslipidemia, depression, and immobility, brought to [facility] Emergency room from the care home because of hypotension and left-sided weakness. We were consulted because of an increased troponin. The troponin when she was discharged last visit at [facility] was 0.07 and 0.09. It elevated to 0.10 at 17:10 last evening and today is 0.04. She does not complain of any chest pain. When I interviewed the patient, although she gave very short answers, they were appropriate. I reviewed her ECG from 12:04 on 01/18/2017, as well as her ECG from 9:57 today. These both showed nonspecific ST changes, with both of the ECG showing PVCs. There are no acute ST changes. Currently, her blood pressure has been running between 99/52 and 123/48. REVIEW OF SYSTEMS Not thought to be meaningful. PAST MEDICAL HISTORY 1. Admission last month, acute CVA. Echo at that time showed EF 65%. We do not have the final echo results available on [employer], or in the chart yet. These are requested. 2. TPA given last month for the CVA. Hypotension afterwards, urinary tract infection with E coli, discharged on Levaquin. 3. Dysphagia. 4. Dementia. 5. Parkinson disease. 6. Dyslipidemia. 7. Depression. 8. Immobility. ALLERGIES None. MEDICATIONS Aspirin 81 mg daily; amantadine 100 mg b.i.d.; carbidopa/levodopa 25/100 two tablets b.i.d.; donepezil 10 mg daily; Lipitor 5 mg daily; DuoNeb Unit #: [id number] #: [id number] Patient: YOSI FARMER p.r.n.; Lasix daily, unknown dose; Neurontin 100 mg daily; Eliquis b.i.d. (I held this last evening because of the hypotension); Betapace 40 mg daily. SOCIAL HISTORY Lives in care home. She stated to me that she previously smoked, and this is confirmed in her chart. PHYSICAL EXAMINATION GENERAL: No acute distress, very very lethargic, answers questions appropriately. VITAL SIGNS: Heart rate is currently 76 and regular, respiratory rate is 18, blood pressure 99/52, height 5 feet 2 inches, weight 211 pounds, BMI 38. CHEST: Clear to auscultation with no rales or wheezes. Follows request accurately. SKIN: Warm and dry, no xanthelasma. HEENT: No icterus, no oral cyanosis. NECK: Carotid exam shows no bruits. Thyroids size are normal. JVD 11 cm. CARDIAC: Normal S1, S2. No S3, S4, murmur, or rub heard. ABDOMEN: Very quiet, decreased bowel sounds. No masses or tenderness. EXTREMITIES: Posterior tibial pulse on the right I cannot feel, but left feels normal. No edema. DIAGNOSTIC STUDIES CARDIOVASCULAR STUDIES: ECG is as above. No acute ST changes. LABORATORY RESULTS: Creatinine 1.2, fasting glucose 64, sodium 146, potassium 3.5. Liver enzymes normal. Alkaline phosphatase slightly high at 99. Hemoglobin is 10.8, white blood count 10.8, platelet count 144,000. Urine still shows 1+ leukocyte esterase and 1+ protein. IMPRESSION 1. Acute non ST-elevation myocardial infarction, by enzymes. However looking at the trend of the enzymes, there is no significant change. We will have her on Lovenox until she can take p.o. and she get started back on her Eliquis, initiated for the CVA. 2. We will not be used a beta-lorenzo at this time, because she cannot take p.o., and because she has lethargy and hypotension. We will get her started on some Lipitor when she can take p.o. 3. Hypotension and lethargy: Sleep-disordered breathing being evaluated with Dr. Thomas benitez. No medications to change at this time from a cardiac perspective. 4. History of cerebrovascular accident with left-sided weakness. In 12/2016, given tPA. RECOMMENDATIONS 1. Her echo was done last month and showed ejection fraction 65%. Her sodium suggest low intravascular volume. Would consider giving some fluids. I do not think we need to do a repeat echo at this point. 2. We will transfer to the care of [facility] with whom I spoke and let them know about this patient. Dictated by... Diego Gipson M.D. Unit #: [id number] #: [id number] Patient: YOSI FARMER LEFTY/china TD: 01/20/2017 06:11 JOB #: [id number] CONSULTATION REPORT Page 1 of 1 X Diego Gipson MD X CONSULTATION REPORT
--- NOTE | ~2017-01-18 | EKG ---
PATIENT: YOSI SOLIZ UNIT #: [id number] Ventricular Rate: 72 BPM Atrial Rate: 72 BPM P-R Interval: 208 ms QRS Duration: 98 ms Q-T Interval: 376 ms QTC Calculation(Bezet): 411 ms P Olcott: 47 degrees Calculated R Olcott: -23 degrees Calculated T Olcott: 21 degrees Diagnosis Line: Sinus rhythm with occasional Premature ventricular Diagnosis Line: complexes Diagnosis Line: Otherwise normal ECG Diagnosis Line: When compared with ECG of 18-JAN-2017 12:04, Diagnosis Line: (unconfirmed) Diagnosis Line: QT has shortened Diagnosis Line: Confirmed by JALIL GRACE MD ([id number]) on 01/19/2017 Diagnosis Line: 8:10:43 PM INTERPRETING MD: LESLY VÁZQUEZ
--- NOTE | ~2017-01-18 | HP ---
Unit #: [id number] #: [id number] Patient: YOSI FARMER [id number] [facility]. [place], [place] [address] [id number] MR#: [id number] NAME: YOSI FARMER ROOM: Age: 66 Sex: F Admission Date: 01/18/2017 : 1950 Attending Physician: Andria Carrillo M.D. Primary Care Physician: Zain Puentes M.D. HISTORY AND PHYSICAL CHIEF COMPLAINT Hypotension, left-sided weakness. HISTORY OF PRESENT ILLNESS The patient is a 66-year-old female with past medical history of multiple medical problems including cerebrovascular accident, dysphagia, dementia, Parkinson's disease, hyperlipidemia, depression, immobility who was brought to the emergency department from the shelter for evaluation of the above. History is obtained from chart review and discussion with ER staff. I also spoke with the patient's family, specifically three of her brothers. One of the brothers, Jayden Farmer, is her power of ip attorney. His phone numbers are [phone] and [phone]. The patient was hospitalized at [facility] December 20 through December 22, 2016, for acute stroke. She received TPA. Some of her deficits did show improvement. Per Dr. Almonte's consultation note from December 20, 2016, the patient did have increased tone in the left upper extremity. Per the discharge summary, she was discharged to the shelter on Eliquis as well as aspirin. Additionally, she is on Sinemet. Today, she was sent from the shelter for hypotension and left-sided weakness. It is unclear if the left-sided deficit is worse than baseline as the patient was noted to have left-sided deficits during the prior admission. In the emergency department, initial temperature was 99.4, blood pressure 82/34. Objectively, a CT of the head was done and showed nothing acute. Chest x-ray showed nothing acute. A left hip x-ray showed no fracture. White blood cell count is 13.1. She was given vancomycin, tobramycin, and Zosyn as well as normal saline 30 mL/kg. She is being admitted to [facility] for evaluation and further treatment. PAST MEDICAL HISTORY 1. Admission to [facility], December 20 through December 22, 2016, for acute stroke. She received TPA during that admission and was discharged to the shelter on aspirin and Eliquis. She did have post TPA hypotension. Was also found to have a urinary tract infection that grew E. coli for which she was discharged to the shelter on Levaquin. 2. Dysphagia. 3. Dementia. Per my discussion with the patient's brothers, she is oriented to person and possibly place at baseline. She "tries" to carry on a conversation. 4. Parkinson's disease on Sinemet. 5. Hyperlipidemia. 6. Depression. 7. Immobility. Unit #: [id number] #: [id number] Patient: YOSI FARMER ALLERGIES No known allergies. HOME MEDICATIONS 1. Aspirin 81 mg daily. 2. Tab-A-Terri daily. 3. Amantadine 100 mg twice daily. 4. Carbidopa/levodopa 25/100 two tablets twice daily. 5. Donepezil 10 mg daily. 6. Lipitor 5 mg at bedtime. 7. DuoNeb q.6 hours p.r.n. 8. Milk of Magnesia p.r.n. 9. Tylenol p.r.n. 10. Lasix daily. 11. Iron daily. 12. Neurontin 100 mg daily. 13. Eliquis twice daily. 14. Betapace 40 mg twice daily. REVIEW OF SYSTEMS A complete review of systems is negative except as indicated in the HPI. SOCIAL HISTORY The patient lives in a shelter. She is a former smoker. She spends most of her time in a wheelchair. Her brother, Jayden Farmer, is her power of ip attorney. CODE STATUS Her code status is a full code. DIAGNOSTIC STUDIES LABORATORY: Arterial blood gas shows a pH of 7.412, pCO2 of 41.4, pO2 of 88 on room air. Complete blood count notable for white blood cell count of 13.1, hemoglobin and hematocrit 11.1 and 35.3 respectively. Troponin is less than 0.05. INR is 1.1. Lactic acid is 0.9. Comprehensive metabolic panel notable for BUN and creatinine of 38 and 2 respectively. ALT is 5, alkaline phosphatase 95, albumin 3.2, lipase 11. Magnesium 2. Urinalysis is notable for 1+ leukocyte esterase, 1+ protein. Lactic acid is 0.7. IMAGING: CT of the head shows nothing acute. Chest x-ray shows nothing acute. The central line, per the radiologist, is possibly arterial; however, the ER physician states that it is in the correct location. Left hip x-ray shows no acute abnormality. PHYSICAL EXAMINATION VITAL SIGNS: Temperature is 97.7, pulse 71, respirations 15, blood pressure 82/34, oxygen saturation 100% on room air. GENERAL: The patient is an -[place] female who is lethargic. She opens eyes to painful stimuli. HEENT: The head is atraumatic. Mucous membranes are dry. NECK: Supple. Trachea is midline. CARDIOVASCULAR: Regular rate and rhythm. LUNGS: Demonstrate a few scattered rhonchi. Breathing is not labored. Unit #: [id number] #: [id number] Patient: YOSI FARMER ABDOMEN: Soft, nontender with bowel sounds present in all four quadrants. EXTREMITIES: Show trace edema. NEUROLOGIC: The patient is lethargic. She opens eyes to physical stimuli. She does have increased tone involving the left upper extremity. PSYCHIATRIC: Unable to assess. SKIN: Skin of examined areas is warm and dry. ASSESSMENT The patient is a 66-year-old female with: 1. Altered mental status. 2. Sepsis with initial lactic acid of 0.9. 3. Possible healthcare-associated pneumonia: The patient received vancomycin, tobramycin, and Zosyn in the emergency department. 4. Acute kidney injury: The patient's creatinine was 0.7 on December 22, 2016. It is 2 today. 5. History of cerebrovascular accident: The patient received TPA last month. She was discharged on Eliquis and aspirin. She was noted to have left-sided deficit during the previous admission. 6. Dysphagia. 7. Dementia. 8. Parkinson's disease on Sinemet. 9. Hyperlipidemia. 10. Depression. 11. Immobility. PLAN 1. Admit to intensive care unit. 2. NPO except medications until awake and passes bedside swallow. 3. Normal saline at 75 mL/hr. 4. Levophed drip for MAP greater than 65. 5. Blood cultures x2. 6. Sputum culture and sensitivity. 7. CT of the chest without contrast for further evaluation of sepsis and possible pneumonia. 8. Procalcitonin level. 9. Streptococcal and legionella urine antigens. 10. DuoNeb q.4 hours. 11. Sepsis protocol with repeat lactic acid. 12. Serial cardiac enzymes. 13. Strict ins and outs. 14. Urine sodium, creatinine, and eosinophils. 15. Renal ultrasound for further evaluation of acute kidney injury. 16. Consult Dr. Kerr regarding acute kidney injury. 17. Neuro checks. 18. Check CPK. 19. Check EKG if not done. 20. Urine culture and sensitivity on urine in the lab. 21. Consult Dr. Guzman regarding intensive care unit admission. 22. Repeat labs in the morning. 23. Sequential compression devices for deep venous thrombosis prophylaxis. 24. Regarding code status, the patient is a full code. 25. Additional workup and consultants based on above. Dictated by Unit #: [id number] #: [id number] Patient: YOSI FARMER M.D. JULITA/nikki TD: 01/18/2017 16:36 JOB #: [id number] HISTORY AND PHYSICAL Page 1 of 1 X Alma Michael MD X HISTORY AND PHYSICAL
[~2017-01-18 10:28] MED LIST changes: +CARBIDOPA-LEVO1 EAC3 PO; +IPRAT-ALBUT 0.5-3 ML INH; +LIPITOR PO; +MAPAP500 MG PO; +MR; +NYSTATIN1 EAC1 MC; +TAB-A-VITE PO
[2017-01-18 11:05] LABS: ARTERIAL BLD GAS O2 SATURATION 95.9 % (90.0-100.0); ARTERIAL BLOOD GAS CARBOXY HB 0.7 %sat (0.0-9.0); ARTERIAL BLOOD GAS HCO3 26.3 mmol/L; ARTERIAL BLOOD GAS MET HB 0.7 %sat (0.0-2.0); ARTERIAL BLOOD GAS PCO2 41.4 mmHg (35.0-45.0); ARTERIAL BLOOD GAS pH 7.412 (7.350-7.450); ARTERIAL DRAW? YES
[2017-01-18 11:06] LABS: ARTERIAL BLOOD GAS ALLEN TEST NORMAL; ARTERIAL BLOOD GAS ART SITE RIGHT RADIAL
[2017-01-18] MEDS ORDERED: LASIX20 MG PO (11:21)
[2017-01-18] MEDS ORDERED: NEURONTIN100 MG PO (11:21)
[2017-01-18] MEDS ORDERED: FERRO-TIME325 MG PO (11:21)
[2017-01-18] MEDS ORDERED: ELIQUIS2.5 MG PO (11:22)
[2017-01-18] MEDS ORDERED: BETAPACE80 MG PO (11:22)
[2017-01-18 11:43] LABS: BASOPHIL% 0.2 % (0-2.5); EOSINOPHIL% 0.1 % (0.0-7.0); HEMATOCRIT 35.3 % (35.0-45.0); HEMOGLOBIN 11.1 gm/dL (12.0-16.0); LYMPHOCYTE# 1.1 X10e3 (1.0-3.5); LYMPHOCYTE% 8.2 % (17.0-45.0); MEAN CELL VOLUME 101.5 FL (83-96); MEAN CORPUSCULAR HGB CONC 31.5 g/dL (30-36); MEAN PLATELET VOLUME 11.1 FL (6.5-11.5); MONOCYTE# 0.9 X10e3 (0-1.0); MONOCYTE% 6.7 % (3.0-12.0); NEUTROPHIL# 11.1 X10e3 (1.5-7.1); NEUTROPHIL% 84.8 % (40-75); PLATELET COUNT 147 X10e3 (140-420); RED BLOOD COUNT 3.48 X10e (3.90-5.30); RED CELL DISTRIBUTION WIDTH 16.1 % (11.0-15.5); WHITE BLOOD COUNT 13.1 X10e3 (4.0-10.5)
[2017-01-18 11:47] LABS: DIFF IND NO
[2017-01-18 11:53] LABS: POC - CKMB 15.1 ng/mL (0.0-7.9); POC - TROPONIN <0.05 ng/mL (<=0.05)
[2017-01-18 11:57] LABS: INR 1.3; PARTIAL THROMBOPLASTIN TIME 36.4 SECONDS (23.5-31.3); PROTHROMBIN TIME (PATIENT) 13.5 SECONDS (9.6-11.5)
[2017-01-18 12:13] LABS: URINE SOURCE CLEAN CATCH
[2017-01-18 12:13] LABS: ALBUMIN SERUM 3.2 g/dL (3.5-5.0); BILIRUBIN, DIRECT 0.3 mg/dL (0.0-0.2); BILIRUBIN,INDIRECT 1.2 mg/dL (0.0-0.9); BILIRUBIN,TOTAL 1.5 mg/dL (0.2-2.0); CALCIUM SERUM 8.8 mg/dL (8.4-10.2); POTASSIUM 3.5 mmol/L (3.5-5.1)
[2017-01-18 12:20] LABS: URINE APPEARANCE CLOUDY; URINE BLOOD NEG (NEG); URINE COLOR DK YELLOW; URINE GLUCOSE NEG (NEG); URINE KETONE TRACE (NEG); URINE LEUKOCYTE ESTERASE 1+ (NEG); URINE NITRATE NEG (NEG); URINE PROTEIN 1+ (NEG); URINE SPECIFIC GRAVITY 1.022 (1.003-1.035)
[2017-01-18 12:23] LABS: URINE BACTERIA AUWI NEG (NEGATIVE); URINE SQUAMOUS EPITHELIAL CELL OCC /[HPF]; UWBCS1 AUWI 0-2 (0-5)
[2017-01-18 12:26] LABS: CULTURE INDICATED? NO; URINE BILIRUBIN NEG (NEG)
[2017-01-18 18:32] LABS: %MB 6.7 % (0.0-4.0); MB 57.1 ng/ml
[2017-01-18 19:40] LABS: CHOLESTEROL 113 mg/dL (0-200); HDL CHOLESTEROL 53 mg/dL (35-95); LDL CHOLESTEROL 47 mg/dL (-130); LDL/HDL RATIO 1 RATIO (0-4); TRIGLYCERIDES 67 mg/dL (10-160)
[2017-01-19 03:16] LABS: CREATININE,RANDOM URINE 122 mg/dL; SODIUM URINE RANDOM 94 mmol/L
[2017-01-19 04:07] LABS: BASOPHIL% 0.3 % (0-2.5); EOSINOPHIL% 0.2 % (0.0-7.0); HEMATOCRIT 33.9 % (35.0-45.0); HEMOGLOBIN 10.8 gm/dL (12.0-16.0); LYMPHOCYTE# 0.7 X10e3 (1.0-3.5); LYMPHOCYTE% 6.7 % (17.0-45.0); MEAN CELL VOLUME 101.1 FL (83-96); MEAN CORPUSCULAR HEMOGLOBIN 32.1 PG (28-34); MEAN CORPUSCULAR HGB CONC 31.7 g/dL (30-36); MEAN PLATELET VOLUME 10.6 FL (6.5-11.5); MONOCYTE# 0.7 X10e3 (0-1.0); MONOCYTE% 6.7 % (3.0-12.0); NEUTROPHIL# 9.3 X10e3 (1.5-7.1); NEUTROPHIL% 86.1 % (40-75); PLATELET COUNT 144 X10e3 (140-420); RED BLOOD COUNT 3.36 X10e (3.90-5.30); RED CELL DISTRIBUTION WIDTH 16.8 % (11.0-15.5); WHITE BLOOD COUNT 10.8 X10e3 (4.0-10.5)
[2017-01-19 04:10] LABS: DIFF IND NO
[2017-01-19 04:20] LABS: INR 1.2; PROTHROMBIN TIME (PATIENT) 12.3 SECONDS (9.6-11.5)
[2017-01-19 04:57] LABS: ALBUMIN SERUM 2.9 g/dL (3.5-5.0); BILIRUBIN,TOTAL 1.6 mg/dL (0.2-2.0); CALCIUM SERUM 8.2 mg/dL (8.4-10.2); CREATININE SERUM 1.2 mg/dL (0.6-1.4); GLOM FILT RATE Estimated 53.8 mL/min (>60); POTASSIUM 3.5 mmol/L (3.5-5.1); PROTEIN TOTAL SERUM 6.3 g/dL (6.0-8.3)
[2017-01-19 10:35] LABS: LEGIONELLA AG URINE NEG (NEG)
[2017-01-20 07:33] LABS: BASOPHIL% 0.2 % (0-2.5); EOSINOPHIL% 0.7 % (0.0-7.0); HEMATOCRIT 31.5 % (35.0-45.0); MEAN CELL VOLUME 101.8 FL (83-96); MEAN CORPUSCULAR HEMOGLOBIN 32.3 PG (28-34); MEAN CORPUSCULAR HGB CONC 31.7 g/dL (30-36); MEAN PLATELET VOLUME 10.1 FL (6.5-11.5); MONOCYTE# 0.7 X10e3 (0-1.0); MONOCYTE% 9.7 % (3.0-12.0); NEUTROPHIL# 5.3 X10e3 (1.5-7.1); NEUTROPHIL% 75.4 % (40-75); PLATELET COUNT 157 X10e3 (140-420); RED CELL DISTRIBUTION WIDTH 16.3 % (11.0-15.5)
[2017-01-20 07:54] LABS: DIFF IND NO
[2017-01-20 08:00] LABS: CALCIUM SERUM 8.3 mg/dL (8.4-10.2); GLOM FILT RATE Estimated 67.1 mL/min (>60); PHOSPHOROUS 2.1 mg/dL (2.5-4.6); POTASSIUM 3.1 mmol/L (3.5-5.1); URIC ACID 5.8 mg/dL (2.6-7.2)
[2017-01-21 05:10] LABS: HEMATOCRIT 30.8 % (35.0-45.0); HEMOGLOBIN 9.9 gm/dL (12.0-16.0); MEAN CORPUSCULAR HEMOGLOBIN 32.3 PG (28-34); MEAN PLATELET VOLUME 10.3 FL (6.5-11.5); RED BLOOD COUNT 3.05 X10e (3.90-5.30); RED CELL DISTRIBUTION WIDTH 16.3 % (11.0-15.5); WHITE BLOOD COUNT 5.9 X10e3 (4.0-10.5)
[2017-01-21 07:06] LABS: CALCIUM SERUM 8.4 mg/dL (8.4-10.2); CREATININE SERUM 0.8 mg/dL (0.6-1.4); GLOM FILT RATE Estimated 87.9 mL/min (>60); POTASSIUM 3.1 mmol/L (3.5-5.1)
[2017-01-22 06:55] LABS: HEMATOCRIT 37.3 % (35.0-45.0); HEMOGLOBIN 11.8 gm/dL (12.0-16.0); MEAN CELL VOLUME 100.8 FL (83-96); MEAN CORPUSCULAR HEMOGLOBIN 31.9 PG (28-34); MEAN CORPUSCULAR HGB CONC 31.7 g/dL (30-36); MEAN PLATELET VOLUME 10.2 FL (6.5-11.5); RED BLOOD COUNT 3.7 X10e (3.90-5.30); RED CELL DISTRIBUTION WIDTH 16.2 % (11.0-15.5); WHITE BLOOD COUNT 7.4 X10e3 (4.0-10.5)
[2017-01-22 07:04] LABS: BUN/CREATININE RATIO 8.57; CREATININE SERUM 0.7 mg/dL (0.6-1.4); GLOM FILT RATE Estimated 103.2 mL/min (>60); POTASSIUM 3.9 mmol/L (3.5-5.1)
== END 2017-01-22 14:26 | DRG 871 ==
LOC: CED 10:28 → CEDOF 15:35 → CED 16:58 → CEDOF 16:58 → CICCU2 01-19 → C3A PCU 01-19 14:30 → CICCU2 01-19 14:30 → C3A PCU 01-22 14:26
PROVIDERS: Emergency Medicine; Family Medicine
PROC: 05H533Z Insertion of Infusion Device into Right Subclavian Vein, Percutaneous Approach (ICD-10-PCS; principal; 2017-01-18)
DX: A41.9 Sepsis, unspecified organism (principal); I21.4 Non-ST elevation (NSTEMI) myocardial infarction; N17.9 Acute kidney failure, unspecified; G92 Toxic encephalopathy; I69.954 Hemiplegia and hemiparesis following unspecified cerebrovascular disease affecting left non-dominant side; R13.10 Dysphagia, unspecified; G20 Parkinson's disease; F02.80 Dementia in other diseases classified elsewhere, unspecified severity, without behavioral disturbance, psychotic disturbance, mood disturbance, and anxiety; E78.5 Hyperlipidemia, unspecified; F32.9 Major depressive disorder, single episode, unspecified; M62.3 Immobility syndrome (paraplegic); Z79.82 Long term (current) use of aspirin; Z79.01 Long term (current) use of anticoagulants; Z87.891 Personal history of nicotine dependence; E86.9 Volume depletion, unspecified; K52.9 Noninfective gastroenteritis and colitis, unspecified
CPT/HCPCS: 36415; 36600; 51702; 70450; 71010; 71250; 73502; 76770; 80048; 80053; 80061; 80076; 80202; 81003; 82308; 82550; 82553; 82570; 82803; 82947; 83605; 83690; 83735; 84100; 84132; 84300; 84484; 84550; 85025; 85027; 85610; 85730; 87040; 87086; 87449; 87899; 89190; 92526; 92610; 93005; 94640; 94760; 96365; 96366; 96367; 99291; G8996-GN; G8997-GN; J1650; J2543; J3260; J3370

== ENCOUNTER 2017-04-03 13:33 | Inpatient (IN) | payer MEDICARE, OTHER ==
[~2017-04-03] VITALS: Ht 175.3 cm; Wt 83.9 kg
--- NOTE | ~2017-04-03 | DS ---
Unit #: [id number] #: [id number] Patient: YOSI SOLIZ [id number] [address] [address] [id number] I MR#: [id number] NAME: YOSI SOLIZ ROOM: 566 Age: 66 Sex: F Admission Date: 04/04/2017 : 1950 Discharge Date: 04/05/2017 Attending Physician: Harsh Miranda M.D. Primary Care Physician: Zain Puentes M.D. DISCHARGE SUMMARY PRIMARY DIAGNOSIS Toxic encephalopathy. SECONDARY DIAGNOSES 1. Paroxysmal atrial fibrillation, new diagnosis. 2. Urinary tract infection. 3. History of Parkinson disease. 4. History of dementia. 5. History of dysphagia. 6. History of dyslipidemia. 7. History of depression. 8. Chronic immobility. HOSPITAL COURSE The patient was placed in the hospital with altered mental status, was noted to have a run of atrial fibrillation on telemetry. She had a fairly significant urinary tract infection with Klebsiella oxytoca, which was sensitive to Bactrim, Rocephin and nitrofurantoin. The patient's mental status improved over her hospital stay. She was treated with Rocephin here and is being discharged on additional 5 days of Bactrim at discharge. For her atrial fibrillation, the patient was seen in consultation with Dr. Laurent with cardiology. The patient did spontaneously convert back to sinus rhythm, and she is being placed on amiodarone for rhythm control. The patient had some mild thrombocytopenia here in the range of 121 to 155, although historically her platelets have always been borderline low going all the back to July of 2015. I do not think this is clinically significant at this time. DISCHARGE MEDICATIONS 1. DuoNeb 1 vial inhaled q.6 hours p.r.n. shortness of breath. 2. Amiodarone 200 mg p.o. daily for one week and then 100 mg p.o. daily. 3. Tylenol 500 mg p.o. b.i.d. p.r.n. pain. 4. Eliquis 2.5 mg p.o. b.i.d. 5. Amantadine 100 mg p.o. b.i.d. 6. Milk of Magnesia 30 mL p.o. daily p.r.n. constipation. 7. Aricept 10 mg p.o. daily. 8. Lipitor 5 mg p.o. q.h.s. 9. Ferrous gluconate 324 mg p.o. daily. 10. Carbidopa levodopa 25/100 mg 2 tablets p.o. b.i.d. 11. Multivitamin 1 tablet p.o. daily. 12. Aspirin 81 mg p.o. daily. Unit #: [id number] #: [id number] Patient: YOSI SOLIZ 13. Bactrim DS 1 tablet p.o. b.i.d. for 5 days. Dictated by... Max Abdi/gabino TD: 04/05/2017 09:52 JOB #: [id number] DISCHARGE SUMMARY Page 1 of 1 X Harsh Miranda MD X DISCHARGE SUMMARY
--- NOTE | ~2017-04-03 | CR72 ---
[facility] A Service of [facility] RADIOLOGY TEXT RESULTS PATIENT: YOSI SOLIZ LOCATION: [facility] 5602-08 : 48 UNIT #: [id number] AGE: [address]: Harsh Miranda MD SEX: F ORDER DR: [id number] [facility] [address] [facility] [place] [facility]. [place], [place] [address] [id number] I MR#: [id number] #: [id number] NAME: YOSI SOLIZ : 1950 SEX: F STUDY DATE/TIME: 04/03/2017 14:13 UNIT: [facility] ROOM: [facility] STUDY DESCRIPTION: CR Chest Single View Portable Attending Physician: Michelle Drake M.D. Ordering Physician: Mookie Bajwa M.D. Primary Care Physician: Zain Puentes M.D. MEDICAL IMAGING REPORT This report is preliminary unless electronic signature is present REVISED REPORT EXAM Chest portable 04/03/2017 1413 hours HISTORY A 66-year-old woman with altered mental status, weakness and shortness of air today. History of Parkinson's and right-sided paralysis. COMPARISON CT chest 01/18/2017 and chest x-ray 01/18/2017. FINDINGS Portable upright chest demonstrates low lung volumes. Heart size at the upper limits of normal unchanged. Aortic contours are normal. There is mild perihilar vascular crowding with calcified granuloma at the right base. There is no acute pulmonary density or pleural effusion. IMPRESSION Mild cardiac prominence unchanged from 01/18/2017. Lung volumes are low with calcified granuloma at the right base. There is no acute pulmonary or pleural finding. *STUDY DATE MODIFED. Dictated by... Suzie Pereira M.D. THIS IS AN ELECTRONICALLY VERIFIED REPORT Suzie Pereira M.D. at 04/18/2017 8:27 PM [facility] A Service of [facility] RADIOLOGY TEXT RESULTS PATIENT: YOSI SOLIZ LOCATION: [facility] 5602-08 : 48 UNIT #: [id number] AGE: [address]: Harsh Miranda MD SEX: F ORDER DR: JOHANN/hernandez TD: 04/03/2017 21:07 JOB #: [id number] MEDICAL IMAGING REPORT Page 1 of 1 COPY
--- NOTE | ~2017-04-03 | CO ---
Unit #: [id number] #: [id number] Patient: YOSI FARMER [id number] [address] [address] [id number] I MR#: [id number] NAME: YOSI FARMER ROOM: 566 Age: 66 Sex: F Admission Date: 04/04/2017 : 1950 Attending Physician: Harsh Miranda M.D. Primary Care Physician: Zain Puentes M.D. Consultation Date: 04/04/2017 CONSULTATION REPORT DICTATOR Trena Arreola APRN. REASON FOR CONSULTATION Atrial fibrillation. HISTORY OF PRESENT ILLNESS This is a 66-year-old female, who [facility] She has a prior history of CVA in December 2016, requiring tPA. She is on chronic anti coagulation with Eliquis for the cerebrovascular accident. In January 2017, she had an elevated troponin in the setting of SIRS. She also has history of hyperlipidemia, dysphagia, Dementia, immobility syndrome. She presented from the senior care with slurred speech and altered mental status. She was found to have a UTI. We were asked to see her because she has been having episodes of atrial fibrillation with rates maintained 80s to 90s. While in the hospital in December, she underwent an echocardiogram, which showed an LVEF of 65%, mild tricuspid regurg and RVST 31 mmHg. At the time of echocardiogram, she was in atrial fibrillation with controlled ventricular rate. She is currently in normal sinus rhythm today. PAST MEDICAL HISTORY 1. Cerebrovascular accident in December 2016. 2. Chronic anti coagulation with Eliquis for cerebrovascular accident. 3. Non ST-segment elevation myocardial infarction in the setting of systemic inflammatory response syndrome in January 2017. 4. Hyperlipidemia. 5. Dementia. 6. Dysphagia. 7. Immobility syndrome. 8. History of paroxysmal atrial fibrillation. 9. Parkinson's disease. 10. She is wheel-chair bound. Her brother Jayden Farmer is power of manager diversity. SHE IS A FULL CODE. SOCIAL HISTORY She lives in a senior care. She is currently nonverbal and the majority of this information is obtained from record review and nursing staff. She had prior history of smoking, but is now a nonsmoker. No illicit drug or alcohol use. FAMILY HISTORY Unit #: [id number] #: [id number] Patient: YOSI FARMER Unable to obtain. PAST SURGICAL HISTORY D and C. ALLERGIES No known drug allergies. MEDICATIONS intermediate medications; DuoNeb, acetaminophen, Eliquis, amantadine, Milk of Magnesia, donepezil, Lipitor, ferrous gluconate, carbidopa/levodopa, multivitamin, and aspirin. REVIEW OF SYSTEMS Unable to obtain a meaningful review of systems as the patient is basically nonverbal. PHYSICAL EXAMINATION VITAL SIGNS: Temperature 98.9, heart rate 80, respiratory rate 18, blood pressure 100/77, height 69 inches, weight 84.8 kg. GENERAL APPEARANCE: This is an elderly 66-year-old female, but in no acute distress. HEENT: Head is atraumatic and normocephalic. Pupils are equal and reacting to light. NECK: Supple. Trachea is midline. No JVD. LUNGS: Clear and decreased in bases. Nonlabored respirations. CARDIOVASCULAR: S1 and S2. Regular rate and rhythm. No murmurs, rubs, or gallops. ABDOMEN: Soft, nontender, and distended. EXTREMITIES: Bilateral upper and lower extremity edema, left greater than right. No cyanosis. Pulses are palpable. NEUROLOGIC: Lethargic. Opens eyes to questioning. DIAGNOSTIC STUDIES LABORATORY RESULTS: Sodium 141, potassium 4.1, chloride 108, BUN 20, creatinine 1.2, and glucose 95. Hemoglobin 12.9, hematocrit 39, white blood cell count 4.8, and platelets 136. AST 73, ALT 22, and alkaline phosphatase 117. Point of care troponin is less than 0.05. TSH drawn in December 2016, was 2.74. Urine culture shows gram negative rods. IMAGING STUDIES: CT of the head showed no acute findings. CARDIOVASCULAR STUDY: EKG revealed atrial fibrillation with ventricular rate of 96, currently normal sinus rhythm on monitor. ASSESSMENT 1. Paroxysmal atrial fibrillation. 2. Altered mental status. 3. Urinary tract infection. 4. History of cerebrovascular accident. 5. LVEF 65% per echo in December 2016. 6. Start p.o. amiodarone. 7. Continue Eliquis for anti-coagulation. Unit #: [id number] #: [id number] Patient: YOSI FARMER 8. The patient will not able to tolerate beta lorenzo or Cardizem due to her low to normal blood pressures. 9. EKG in a.m. Thank you for asking us to see the patient. We appreciate the consult. Dictated by.Aaliyah Arreola for Max Abdi/china TD: 04/05/2017 07:31 JOB #: [id number] CC: Morena Laurent M.D. CONSULTATION REPORT Page 1 of 1 X X CONSULTATION REPORT
--- NOTE | ~2017-04-03 | EKG ---
PATIENT: YOSI SOLIZ UNIT #: [id number] Ventricular Rate: 71 BPM Atrial Rate: 71 BPM P-R Interval: 188 ms QRS Duration: 90 ms Q-T Interval: 388 ms QTC Calculation(Bezet): 421 ms P [place]: 40 degrees Calculated R [place]: -23 degrees Calculated T [place]: 10 degrees Diagnosis Line: Normal sinus rhythm Diagnosis Line: Normal ECG Diagnosis Line: When compared with ECG of 19-JAN-2017 09:57, Diagnosis Line: Premature ventricular complexes are no longer Diagnosis Line: Present Diagnosis Line: Confirmed by MIKAYLA LITTLE MD ([id number]) on Diagnosis Line: 04/03/2017 5:11:50 PM INTERPRETING MD: SIDNEY VÁZQUEZ
--- NOTE | ~2017-04-03 | CT72 ---
[facility] A Service of [facility] RADIOLOGY TEXT RESULTS PATIENT: YOSI SOLIZ LOCATION: [facility] : 48 UNIT #: [id number] AGE: [address]: Harsh Miranda MD SEX: F ORDER DR: [id number] [facility] [address] [facility]. [place], [place] [address] [id number] I MR#: [id number] Acc #: [id number] NAME: YOSI SOLIZ : 1950 SEX: F STUDY DATE/TIME: 04/03/2017 13:45 UNIT: [facility] ROOM: [facility] STUDY DESCRIPTION: CT Head Wo Contrast Stroke Attending Physician: Michelle Drake M.D. Ordering Physician: Mookie Bajwa M.D. Primary Care Physician: Zain Puentes M.D. MEDICAL IMAGING REPORT This report is preliminary unless electronic signature is present EXAM CT of the head without contrast INDICATIONS Left-sided facial droop. Last seen normal at 10:30 a.m. today. TECHNIQUE Axial CT images were obtained from vertex of the skull through the skull base and no intravenous contrast material was administered. This CT exam was performed with one or more of the following radiation dose reduction techniques: automatic exposure control, adjustment of mA and/or kV according to patient size, and iterative reconstruction. FINDINGS No acute intracranial hemorrhage is identified. Brain parenchyma is normal in attenuation with the exception of some of punctate basal ganglia calcifications bilaterally. I do not see any focal areas of decreased attenuation. There is no midline shift or mass effect. I do think there is probably some mild periventricular and deep white matter microangiopathic disease. Well visualized paranasal sinuses and mastoid air cells appear clear. No aggressive osseous abnormalities are seen and no focal soft tissue abnormalities are identified. IMPRESSION No acute cranial process identified. Specifically, there is no evidence of acute hemorrhage, mass lesion or acute infarct. Patient is suspected to have some mild microangiopathic disease. [facility] A Service [facility] RADIOLOGY TEXT RESULTS PATIENT: YOSI SOLIZ LOCATION: [facility] : 48 UNIT #: [id number] AGE: [address]: Harsh Miranda MD SEX: F ORDER DR: Dictated by... Kim Mcfarland M.D. THIS IS AN ELECTRONICALLY VERIFIED REPORT Kim Mcfarland M.D. at 04/05/2017 5:11 PM AFF/pcl TD: 04/03/2017 21:16 JOB #: [id number] MEDICAL IMAGING REPORT Page 1 of 1 COPY
--- NOTE | ~2017-04-03 | DS ---
Unit #: [id number] #: [id number] Patient: YOSI SOLIZ [id number] [address] [address] [id number] I MR#: [id number] NAME: YOSI SOLIZ ROOM: 566 Age: 66 Sex: F Admission Date: 04/04/2017 : 1950 Discharge Date: 04/05/2017 Attending Physician: Harsh Miranda M.D. Primary Care Physician: Zain Puentes M.D. DISCHARGE SUMMARY ADDENDUM After review of drug interactions with Bactrim and the patient's previous home medications, I have decided to alter the patient's antibiotic to avoid drug-drug interactions. Instead of Bactrim the patient will be on Macrobid 100 mg p.o. b.i.d. for the next 5 days. Dictated by... Max Abdi/gabino TD: 04/05/2017 10:05 JOB #: [id number] DISCHARGE SUMMARY Page 1 of 1 X Harsh Miranda MD X DISCHARGE SUMMARY
--- NOTE | ~2017-04-03 | HP ---
Unit #: [id number] #: [id number] Patient: YOSI FARMER [id number] [facility]. [place], [place] [address] [id number] I MR#: [id number] NAME: YOSI FARMER ROOM: 566 Age: 66 Sex: F Admission Date: 04/03/2017 : 1950 Attending Physician: Skyler Drake M.D. Primary Care Physician: Zain Puentes M.D. HISTORY AND PHYSICAL CHIEF COMPLAINT Slurring of speech. HISTORY OF PRESENT ILLNESS The patient is a 66-year-old female with a past medical history of multiple medical problems including CVA, dysphagia, dementia, Parkinson disease, hyperlipidemia, depression, immobility, brought to the emergency room from [facility] for the above reasons. The patient is a poor historian and the history is obtained by speaking to the patient's brother at the bedside. The patient has had multiple admissions for the similar reasons with a focal neuro and was found to have a UTI. Today the patient was found to have a UTI with a UA shows 3+ leukocyte esterase, innumerable urine WBCs and 4+ urine bacteria and patient is being admitted for the above reasons, denies any fever, denies any chills. PAST MEDICAL HISTORY History of a UTI with E. coli, dysphagia, dementia, Parkinson disease, hyperlipidemia, depression, immobility. ALLERGIES No known drug allergies. CORRECTION MEDICATIONS DuoNeb, Tylenol, Eliquis, amantadine, milk of magnesia, donepezil, Lipitor, ferrous gluconate, carbidopa and levodopa, multivitamin and aspirin. REVIEW OF SYMPTOMS Unable to obtain as the patient is not able to provide. SOCIAL HISTORY The patient lives in a shelter. She is a former smoker. She spends most of her time in a wheelchair. Her brother, Jayden Farmer, is her power of document review attorney. Code status is a Full Code as per records. FAMILY HISTORY Reviewed and none. PHYSICAL EXAMINATION GENERAL APPEARANCE: On examination patient is lying on a bed, not in acute distress. VITAL SIGNS: Temperature is 98.8, pulse 71, respiration 15, blood pressure 97/83. Unit #: [id number] #: [id number] Patient: YOSI FARMER HEENT: Head atraumatic and normocephalic. Pupils equal, round and reacting to light and accommodation. Extraocular movements are intact. NECK: Supple. LUNGS: Decreased air entry at the bases. HEART: Regular rate and rhythm. ABDOMEN: Soft, nontender. EXTREMITIES: Trace edema. NEUROLOGIC: Patient is lethargic. She opens eyes to the physical stimuli. PSYCHIATRIC: Unable to assess. DIAGNOSTIC STUDIES LABORATORY DATA: WBCs 5.2, hemoglobin 13.7, hematocrit 41.9, platelet of 155, INR is 1.1, troponin less than 0.05, sodium 140, potassium 4.4, chloride 110, bicarb 25, glucose 75, BUN 23, creatinine 1.4, AST 73, ALT 22, alkaline phosphatase 117, glucose is 65 and UA shows 3+ leukocyte esterase, positive nitrite, urine RBCs 10 to 25, urine WBCs innumerable, urine bacteria 4+. CARDIOVASCULAR: The EKG shows normal sinus rhythm. ASSESSMENT 1. Altered mental status. 2. Urinary tract infection. 3. Probable sepsis. PLAN Plan to admit to the observation with the telemetry. Continue with the IV antibiotics per sepsis protocol and OT/PT and repeat the labs again in the morning and continue with the IV antibiotic with Rocephin and follow up with the urine cultures and further recommendations will follow. Dictated by Max Mason/eric TD: 04/03/2017 21:35 JOB #: [id number] HISTORY AND PHYSICAL Page 1 of 1 X SKYLER DRAKE MD X HISTORY AND PHYSICAL
--- NOTE | ~2017-04-03 | EKG ---
PATIENT: YOSI SOLIZ UNIT #: [id number] Ventricular Rate: 58 BPM Atrial Rate: 58 BPM P-R Interval: 254 ms QRS Duration: 106 ms Q-T Interval: 458 ms QTC Calculation(Bezet): 449 ms P [place]: 56 degrees Calculated R [place]: -8 degrees Calculated T [place]: 67 degrees Diagnosis Line: Sinus bradycardia with 1st degree A-V block Diagnosis Line: Otherwise normal ECG Diagnosis Line: When compared with ECG of 04-APR-2017 02:08, Diagnosis Line: Sinus rhythm has replaced Atrial fibrillation Diagnosis Line: Vent. rate has decreased BY 39 BPM Diagnosis Line: Non-specific change in ST segment in Inferior Diagnosis Line: leads Diagnosis Line: Non-specific change in ST segment in Anterior Diagnosis Line: leads Diagnosis Line: Nonspecific T wave abnormality no longer evident Diagnosis Line: in Inferior leads Diagnosis Line: Confirmed by ANDREW SIMMS MD ([id number]) on Diagnosis Line: 04/05/2017 3:54:27 PM INTERPRETING MD: MARKO
--- NOTE | ~2017-04-03 | CO ---
Unit #: [id number] #: [id number] Patient: YOSI SOLIZ [id number] [facility]. [place], [place] [address] [id number] I MR#: [id number] NAME: YOSI SOLIZ ROOM: 566 Age: 66 Sex: F Admission Date: 04/03/2017 : 1950 Attending Physician: Harsh Miranda M.D. Primary Care Physician: Zain Puentes M.D. CONSULTATION REPORT CODE STROKE ALERT RESPONSE Date of ER arrival was 04/03/2017. Code stroke was called her on EMS arrival with report of change in mental status, questionable left facial droop. The patient is known to our service. She was treated with IV alteplase in 12/2016. She comes with her current symptoms with report of change in mental status and deficit; however, no focal deficits have been seen here. There was question about change in speech in December, which is why she received alteplase because the patient was not speaking. There was concern for aphasia and the patient was reported as alert and oriented to baseline. The patient's baseline here on last several admissions have been that of poor cooperation and confusion. She has known established history of dementia with behavioral disturbance, and also Parkinson disease. She was reported as having liquid coming out of the left side of her mouth today and being slumped over with slurred speech. The patient presents with a similar presentation in the last few times she has been here. She is very frozen. She is poorly cooperative. At times, becomes combative. She has minimal speech, but typically says no to most things. She has no focal measurable deficit. Again, on this evaluation, she is not a candidate for IV alteplase. She is on Eliquis and is taking that as directed. She was unable to undergo a CT angiogram of the head and neck due to the patient's inability to lie flat and cooperate. Symptoms are not suggestive of a large artery infarct at this time. There is no focal measurable deficit at this time and the patient is being sent back to the ER for further evaluation to rule out any metabolic disturbances versus exacerbation of her chronic conditions. Again, she is not a candidate for acute intervention for stroke as she is on Eliquis. She currently does not have a focal measurable change and nothing suggesting large artery infarct. She is unable to cooperate for CT angiogram. She is very rigid and unable to lie still. She has no focal weakness. She has no gaze palsy. When she does speak, her speech is clear. Presentation is certainly concerning for behavioral rather than vascular etiology and again, she is not a candidate for IV alteplase and/or thrombectomy and we were unable to complete a CT angiogram. Her CT of the head is pending and is being read by Radiology currently as a stat CT of the head. We will follow up on those results. No obvious tasneem hypodensity seen or hemorrhage, but will follow up on those results if they are available. Case was discussed with Dr. Almonte at the time of code stroke and also with the ED physician. Please call as needed. Dictated by... Mehreen Tenorio A.P.R.N. Unit #: [id number] #: [id number] Patient: YOSI SOLIZ TIERNEY/china TD: 04/04/2017 00:41 JOB #: [id number] CONSULTATION REPORT Page 1 of 1 X Mehreen Tenorio APRN X CONSULTATION REPORT
--- NOTE | ~2017-04-03 | EKG ---
PATIENT: YOSI SOLIZ UNIT #: [id number] Ventricular Rate: 97 BPM Atrial Rate: 91 BPM QRS Duration: 98 ms Q-T Interval: 370 ms QTC Calculation(Bezet): 469 ms Calculated R [place]: 23 degrees Calculated T [place]: -5 degrees Diagnosis Line: Atrial fibrillation Diagnosis Line: Nonspecific T wave abnormality , probably Diagnosis Line: digitalis effect Diagnosis Line: Prolonged QT Diagnosis Line: Abnormal ECG Diagnosis Line: When compared with ECG of 03-APR-2017 14:20, Diagnosis Line: Atrial fibrillation has replaced Sinus rhythm Diagnosis Line: Non-specific change in ST segment in Anterior Diagnosis Line: leads Diagnosis Line: Nonspecific T wave abnormality now evident in Diagnosis Line: Lateral leads Diagnosis Line: Confirmed by SHAQUILLE ANTHONY MD ([id number]) on Diagnosis Line: 04/04/2017 11:58:21 AM INTERPRETING MD: RAJ VÁZQUEZ
[~2017-04-03 13:33] MED LIST changes: +BETAPACE80 MG PO; +ELIQUIS2.5 MG PO; +FERRO-TIME325 MG PO
[2017-04-03 14:41] LABS: BASOPHIL% 0.2 % (0-2.5); EOSINOPHIL% 0.2 % (0.0-7.0); HEMATOCRIT 41.8 % (35.0-45.0); HEMOGLOBIN 13.7 gm/dL (12.0-16.0); LYMPHOCYTE# 0.7 X10e3 (1.0-3.5); LYMPHOCYTE% 14.1 % (17.0-45.0); MEAN CELL VOLUME 99.9 FL (83-96); MEAN CORPUSCULAR HEMOGLOBIN 32.7 PG (28-34); MEAN CORPUSCULAR HGB CONC 32.7 g/dL (30-36); MEAN PLATELET VOLUME 10.4 FL (6.5-11.5); MONOCYTE# 0.3 X10e3 (0-1.0); MONOCYTE% 5.7 % (3.0-12.0); NEUTROPHIL# 4.2 X10e3 (1.5-7.1); NEUTROPHIL% 79.8 % (40-75); PLATELET COUNT 155 X10e3 (140-420); RED BLOOD COUNT 4.19 X10e (3.90-5.30); RED CELL DISTRIBUTION WIDTH 16.3 % (11.0-15.5); WHITE BLOOD COUNT 5.2 X10e3 (4.0-10.5)
[2017-04-03 14:42] LABS: DIFF IND NO
[2017-04-03 14:48] LABS: INR 1.1; PARTIAL THROMBOPLASTIN TIME 31.6 SECONDS (23.5-31.3)
[2017-04-03 14:53] LABS: POC - CKMB 14.1 ng/mL (0.0-7.9); POC - TROPONIN <0.05 ng/mL (<=0.05)
[2017-04-03 14:54] LABS: BILIRUBIN, DIRECT 0.1 mg/dL (0.0-0.2); BILIRUBIN,INDIRECT 0.9 mg/dL (0.0-0.9); BUN/CREATININE RATIO 16.42; CALCIUM SERUM 9.9 mg/dL (8.4-10.2); CREATININE SERUM 1.4 mg/dL (0.6-1.4); GLOM FILT RATE Estimated 44.6 mL/min (>60); POTASSIUM 4.4 mmol/L (3.5-5.1)
[2017-04-03] MEDS ORDERED: ACETAMINOPHEN PO (16:14)
[2017-04-03] MEDS ORDERED: IPRATR-ALBUTEROL3 ML NEB (16:14)
[2017-04-03] MEDS ORDERED: LIPITOR PO (16:15)
[2017-04-03] MEDS ORDERED: AMANTADINE100 M1 PO (16:15)
[2017-04-03] MEDS ORDERED: DONEPEZIL HCL10 MG PO (16:15)
[2017-04-03] MEDS ORDERED: MILK OF MAGNESIA PO (16:15)
[2017-04-03] MEDS ORDERED: ELIQUIS2.5 MG PO (16:15)
[2017-04-03] MEDS ORDERED: ASPIRIN81 M2 PO (16:16)
[2017-04-03] MEDS ORDERED: FERROUS GLUCON324 M2 PO (16:16)
[2017-04-03] MEDS ORDERED: CARBIDOPA-LEVO1 EAC5 PO (16:16)
[2017-04-03] MEDS ORDERED: MULTIVITAMINS1 EAC3 PO (16:16)
[2017-04-03 16:21] LABS: URINE SOURCE CLEAN CATCH
[2017-04-03 16:44] LABS: URINE APPEARANCE TURBID; URINE BLOOD 1+ (NEG); URINE COLOR DK YELLOW; URINE GLUCOSE NEG (NEG); URINE KETONE TRACE (NEG); URINE LEUKOCYTE ESTERASE 3+ (NEG); URINE NITRATE POS (NEG); URINE PROTEIN TRACE (NEG); URINE SPECIFIC GRAVITY 1.026 (1.003-1.035)
[2017-04-03 16:47] LABS: CULTURE INDICATED? YES; URINE BACTERIA AUWI 4+ (NEGATIVE); URINE SQUAMOUS EPITHELIAL CELL MOD /[HPF]; UWBCS1 AUWI INNUM (0-5)
[2017-04-03 16:52] LABS: URINE BILIRUBIN NEG (NEG)
[2017-04-03 16:56] LABS: POC - GFR >60.0 mL/min (>60)
[2017-04-03 18:23] LABS: POC - TROPONIN <0.05 ng/mL (<=0.05)
[2017-04-04 06:56] LABS: BASOPHIL% 0.3 % (0-2.5); EOSINOPHIL% 0.4 % (0.0-7.0); HEMOGLOBIN 12.9 gm/dL (12.0-16.0); LYMPHOCYTE# 1.1 X10e3 (1.0-3.5); LYMPHOCYTE% 23.5 % (17.0-45.0); MEAN CELL VOLUME 99.5 FL (83-96); MEAN CORPUSCULAR HEMOGLOBIN 32.9 PG (28-34); MEAN CORPUSCULAR HGB CONC 33.1 g/dL (30-36); MEAN PLATELET VOLUME 10.2 FL (6.5-11.5); MONOCYTE# 0.4 X10e3 (0-1.0); MONOCYTE% 8.5 % (3.0-12.0); NEUTROPHIL# 3.2 X10e3 (1.5-7.1); NEUTROPHIL% 67.3 % (40-75); PLATELET COUNT 136 X10e3 (140-420); RED BLOOD COUNT 3.92 X10e (3.90-5.30); RED CELL DISTRIBUTION WIDTH 16.6 % (11.0-15.5); WHITE BLOOD COUNT 4.8 X10e3 (4.0-10.5)
[2017-04-04 07:05] LABS: BUN/CREATININE RATIO 16.66; CALCIUM SERUM 9.3 mg/dL (8.4-10.2); CREATININE SERUM 1.2 mg/dL (0.6-1.4); GLOM FILT RATE Estimated 53.8 mL/min (>60); POTASSIUM 4.1 mmol/L (3.5-5.1)
[2017-04-04 07:19] LABS: DIFF IND NO
[2017-04-05 06:53] LABS: HEMATOCRIT 36.8 % (35.0-45.0); HEMOGLOBIN 12.1 gm/dL (12.0-16.0); MEAN CELL VOLUME 99.4 FL (83-96); MEAN CORPUSCULAR HEMOGLOBIN 32.6 PG (28-34); MEAN CORPUSCULAR HGB CONC 32.8 g/dL (30-36); RED BLOOD COUNT 3.7 X10e (3.90-5.30); RED CELL DISTRIBUTION WIDTH 16.3 % (11.0-15.5); WHITE BLOOD COUNT 4.2 X10e3 (4.0-10.5)
[2017-04-05 07:16] LABS: BUN/CREATININE RATIO 12.22; CALCIUM SERUM 9.2 mg/dL (8.4-10.2); CREATININE SERUM 0.9 mg/dL (0.6-1.4); GLOM FILT RATE Estimated 76.2 mL/min (>60); POTASSIUM 3.7 mmol/L (3.5-5.1)
== END 2017-04-05 13:18 | DRG 689 ==
LOC: CED 13:33 → C5C 18:15 → CEDOF 18:15 → C5C 18:59 → CEDOF 18:59 → CED 18:59 → CEDOF 20:21 → C5C 20:21 → CED 04-04 11:44 → CEDOF 04-04 11:44 → C5C 04-05 13:18
PROVIDERS: Emergency Medicine; Internal Medicine
DX: N39.0 Urinary tract infection, site not specified (principal); G92 Toxic encephalopathy; G20 Parkinson's disease; R13.10 Dysphagia, unspecified; F02.80 Dementia in other diseases classified elsewhere, unspecified severity, without behavioral disturbance, psychotic disturbance, mood disturbance, and anxiety; I07.1 Rheumatic tricuspid insufficiency; I48.0 Paroxysmal atrial fibrillation; R47.81 Slurred speech; E78.5 Hyperlipidemia, unspecified; F32.9 Major depressive disorder, single episode, unspecified; M62.3 Immobility syndrome (paraplegic); Z79.01 Long term (current) use of anticoagulants; Z79.82 Long term (current) use of aspirin; I25.2 Old myocardial infarction; Z99.3 Dependence on wheelchair; B96.1 Klebsiella pneumoniae [K. pneumoniae] as the cause of diseases classified elsewhere
CPT/HCPCS: 36415; 51701; 70450; 70496; 70498; 71010; 80048; 80076; 81003; 82553; 82565; 82947; 83605; 84484; 85025; 85027; 85610; 85730; 87086; 87088; 87186; 92610; 93005; 94760; 96365; 99285; G8996-GN; G8997-GN; J0696; Q9967

== ENCOUNTER 2017-04-10 15:08 | Emergency (ER) | payer MEDICARE ==
[~2017-04-10] VITALS: Ht 167.6 cm; Wt 83.9 kg
--- NOTE | ~2017-04-10 | CR72 ---
[facility] A Service of [facility] RADIOLOGY TEXT RESULTS PATIENT: YOSI SOLIZ LOCATION: [facility] : 48 UNIT #: [id number] AGE: [address]: Aleyda Chan MD SEX: F ORDER DR: [id number] [facility] [address] [place], [place] [address] [id number] MR#: [id number] Acc #: [id number] NAME: YOSI SOLIZ : 1950 SEX: F STUDY DATE/TIME: 04/10/2017 19:04 UNIT: [facility] ROOM: STUDY DESCRIPTION: CR Chest Single View Portable Attending Physician: Aleyda Chan M.D. Ordering Physician: Aleyda Chan M.D. Primary Care Physician: Zain Puentes M.D. MEDICAL IMAGING REPORT This report is preliminary unless electronic signature is present EXAM Portable chest 04/10/2017 HISTORY Shortness of breath, aspiration today, choked on water. FINDINGS There is mild cardiac enlargement. There is poor inspiratory result but the lungs are clear. There are no pleural effusions. IMPRESSION Mild cardiac enlargement. No active pulmonary disease. Dictated by... José Miguel iTnajero M.D. THIS IS AN ELECTRONICALLY VERIFIED REPORT José Miguel Tinajero M.D. at 04/11/2017 7:37 AM KRT/to TD: 04/10/2017 20:38 JOB #: [id number] MEDICAL IMAGING REPORT Page 1 of 1 COPY
--- NOTE | ~2017-04-10 | CT71 ---
[facility] A Service of [facility] RADIOLOGY TEXT RESULTS PATIENT: YOSI SOLIZ LOCATION: [facility] : 46 UNIT #: [id number] AGE: [address]: Aleyda Chan MD SEX: F ORDER DR: [id number] [id number] [facility]. [place], [place] [address] [id number] MR#: [id number] Acc #: [id number] NAME: YOSI SOLIZ : 1950 SEX: F STUDY DATE/TIME: 04/10/2017 20:02 UNIT: [facility] ROOM: STUDY DESCRIPTION: CT Head Wo Contrast Attending Physician: Aleyda Chan M.D. Ordering Physician: Tip Wadsworth M.D. Primary Care Physician: Zain Puentes M.D. MEDICAL IMAGING REPORT This report is preliminary unless electronic signature is present EXAM CT brain without contrast. HISTORY Seizure today. TECHNIQUE This CT exam was performed with one or more of the following radiation dose reduction techniques: automatic exposure control, adjustment of mA and/or kV according to patient size, and iterative reconstruction. FINDINGS Axial noncontrast images were obtained from the skull base to the vertex. Ventricular size and configuration are normal. There is no evidence of acute infarct or hemorrhage. There are no extra-axial fluid collections. No mass lesion or mass effect is seen. There are no skull fractures. IMPRESSION Normal noncontrast head CT. Dictated by... Sharif Echeverria M.D. THIS IS AN ELECTRONICALLY VERIFIED REPORT Sharif Echeverria M.D. at 04/11/2017 3:16 PM OK/carlo TD: 04/10/2017 21:33 JOB #: [id number] [facility] A Service [facility] RADIOLOGY TEXT RESULTS PATIENT: YOSI SOLIZ LOCATION: [facility] : 46 UNIT #: [id number] AGE: [address]: Aleyda Chan MD SEX: F ORDER DR: MEDICAL IMAGING REPORT Page 1 of 1 COPY
[~2017-04-10 15:08] MED LIST changes: +ACETAMINOPHEN PO; +ASPIRIN81 M2 PO; +CARBIDOPA-LEVO1 EAC5 PO; +FERROUS GLUCON324 M2 PO; +IPRATR-ALBUTEROL3 ML NEB; +MULTIVITAMINS1 EAC3 PO
[2017-04-10 16:56] LABS: BASOPHIL% 0.3 % (0-2.5); EOSINOPHIL% 0.4 % (0.0-7.0); HEMOGLOBIN 13.9 gm/dL (12.0-16.0); LYMPHOCYTE# 0.7 X10e3 (1.0-3.5); LYMPHOCYTE% 13.9 % (17.0-45.0); MEAN CELL VOLUME 99.2 FL (83-96); MEAN CORPUSCULAR HEMOGLOBIN 32.9 PG (28-34); MEAN CORPUSCULAR HGB CONC 33.2 g/dL (30-36); MEAN PLATELET VOLUME 10.7 FL (6.5-11.5); MONOCYTE# 0.3 X10e3 (0-1.0); MONOCYTE% 5.8 % (3.0-12.0); NEUTROPHIL# 3.8 X10e3 (1.5-7.1); NEUTROPHIL% 79.6 % (40-75); RED BLOOD COUNT 4.23 X10e (3.90-5.30); RED CELL DISTRIBUTION WIDTH 16.3 % (11.0-15.5); WHITE BLOOD COUNT 4.8 X10e3 (4.0-10.5)
[2017-04-10 17:15] LABS: PLATELET COUNT 119 X10e3 (140-420)
[2017-04-10 17:16] LABS: CALCIUM SERUM 10.1 mg/dL (8.4-10.2); DIFF IND NO; GLOM FILT RATE Estimated 67.1 mL/min (>60)
[2017-04-10 18:09] LABS: URINE SOURCE CLEAN CATCH
[2017-04-10 18:17] LABS: URINE APPEARANCE CLEAR; URINE BILIRUBIN NEG (NEG); URINE BLOOD NEG (NEG); URINE COLOR DK YELLOW; URINE GLUCOSE >1000 MG/DL (NEG); URINE KETONE 1+ (NEG); URINE LEUKOCYTE ESTERASE NEG (NEG); URINE NITRATE NEG (NEG); URINE PROTEIN TRACE (NEG); URINE SPECIFIC GRAVITY 1.027 (1.003-1.035); URINE UROBILINOGEN 0.2 MG/DL (NEG)
[2017-04-10 18:22] LABS: CULTURE INDICATED? NO
== END 2017-04-10 22:04 | disposition home or self-care (01) ==
LOC: CED 15:08
PROVIDERS: Emergency Medicine
DX: E16.2 Hypoglycemia, unspecified (principal); Z79.899 Other long term (current) drug therapy
CPT/HCPCS: 36415; 51701; 70450; 71010; 80048; 81003; 83605; 85025; 96374; 99285